=== PATIENT | female | born 1945 | race Caucasian/White ===

== ENCOUNTER 2017-06-04 10:57 | Observation (INO) ==
[2017-06-04] MEDS ORDERED: 0.9 % Sodium Chloride 1,000 ML IVC ONE (11:20)
[2017-06-04] MEDS ORDERED: Ondansetron 4 MG/2 ML VIAL IVP ONE (11:23)
--- NOTE | 2017-06-04 11:26 | Emergency Department Note ---
Disposition Clinical Impression: Weakness, Dehydration Anemia Qualifiers: Anemia type: unspecified type Qualified Code(s): D64.9 - Anemia, unspecified Disposition: Admitted As Inpatient Condition: Fair Forms: ED Satisfaction Letter Weakness HPI - General Chief complaint: ED Weakness Stated complaint: N/V/D weakness x1week Time Seen by Provider: 06/04/17 11:13 Source: patient Limitations: no limitations Nursing Notes Reviewed: Yes Vital Signs Reviewed: Yes - History of Present Illness HPI Narrative: 8-year-old female complaints of generalized weakness. Symptoms started approximately 1 week ago with nausea vomiting and diarrhea. Patient felt that she probably had a virus. Was not seen by primary care doctor. Weakness got progressively worse to the point that today she feel both weak and short of breath. Was in to see her primary care doctor whom he was sent her to the emergency department for further evaluation and treatment. She denies fevers or chills. She continues to have nausea and vomiting. She says she has no chest pain but she does feel short of breath. Not so much that she cannot catch her breath but just feels like she is weakened and has a difficult time catching her breath. No abdominal pain but does have a history of diverticulitis. 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 She currently takes Coumadin for this. She said the symptoms are worse this morning and have not improved through the course of the day. She is not taken any additional medications. Pt Subjective Complaint: generalized weakness/fatigue Onset (ago): day(s) Duration: constant Location: generalized Migration: none Pain Severity: none Pain Scale: 0 Improves with: none Worsens with: none Context: recent illness Associated symptoms: Reports: shortness of breath - Related Data Allergies Allergy/AdvReac Type Severity Reaction Status Date / Time cephalexin [From Keflex] Allergy Hives Verified 06/04/17 10:59 All systems ED: reviewed and negative except as stated. Constitutional: Reports: weakness Cardiovascular: Denies: chest pain, palpitations Respiratory: Reports: dyspnea Gastrointestinal: Reports: nausea, vomiting, diarrhea Genitourinary: Reports: as per HPI Musculoskeletal: Reports: as per HPI Neurological: Reports: weakness Psychiatric: Reports: as per HPI Past Medical History - Past Medical History Attestation: Yes The following information was validated with the patient. Medical history: Reports: DVT, hyperlipidemia, other Psychiatric history: Reports: no psych history - Social History Smoking Status: Never smoker Smokeless Tobacco Status: No Alcohol use: Reports: none Drug use: Reports: none Physical Exam - General Limitations: no limitations General appearance: alert, in no apparent distress - Head Head exam: atraumatic - Eye Eye exam: Present: normal appearance, PERRL - ENT ENT exam: normal exam, normal oropharynx - Neck Neck exam: Present: normal inspection, full ROM - Chest Chest inspection: Present: normal inspection, symmetric chest wall rise - Respiratory Respiratory exam: Present: normal lung sounds bilaterally. Absent: respiratory distress - Cardiovascular Cardiovascular exam: Present: regular rate, normal rhythm - Abdominal Exam Abdominal exam: Present: soft, Non-Tender - Extremities Exam Extremities exam: Present: pedal edema (Patient has bilateral mild edema. She says this is not new.) - Neurological Exam Neurological exam: Present: alert, oriented X3 - Psychiatric Psychiatric exam: Present: normal affect - Skin Skin exam: Present: warm, dry, intact Course Vital Signs Temperature 97.8 F 06/04/17 10:59 Pulse Rate 76 06/04/17 10:59 Respiratory Rate 18 06/04/17 10:59 Blood Pressure 145/74 06/04/17 10:59 O2 Sat by Pulse Oximetry 100 06/04/17 10:59 Temperature 97.8 F 06/04/17 10:59 Pulse Rate 72 06/04/17 13:24 Respiratory Rate 16 06/04/17 13:24 Blood Pressure 155/77 06/04/17 13:24 O2 Sat by Pulse Oximetry 98 06/04/17 13:24 Oxygen Delivery Oxygen Delivery Room Air Weakness - [facility] Narrative Medical decision making narrative: [place] potential causes for this patient's weakness. It could be something relatively simple such as dehydration which is easing of treat, but will also need to check for other more significant abnormalities. The patient's history of DVTs and filter placement we will check for PEs today we will also check for diverticulitis by scanning both of those areas. We will check lab testing EKG and also look for cardiac causes of her potential weakness. Disposition will depend on findings of the workup and also how the patient does with treatment for nausea and dehydration. I spoke with the hospitalist at 1:50 PM. We agreed to start one treatment of packed red blood cells prior to admission. And will arrange for hospitalization for treatment of her anemia. I did not have a source of anemia at time of ER visit. Patient does have no PE per her radiographic evaluation and the abdominal CT scan was also negative. Other lab tests are largely unremarkable. Hospitalization was arranged. - Lab Data Lab results reviewed: Yes I reviewed the patient's lab results. Result diagrams: 06/04/17 11:30 06/04/17 11:30 Lab Results 06/04/17 06/04/17 06/04/17 Range/Units 11:30 11:30 11:30 WBC 6.5 (4.3-11.1) K/mcL RBC 4.08 (3.82-4.97) M/mcL Hgb 7.4 L (11.5-15.4) g/dL Hct 26.6 L (35.3-44.9) % MCV 65.2 L (83.0-100.0) fL MCH 18.1 L (28.0-33.3) pg MCHC 27.8 L (31.6-35.5) g/dL RDW 16.7 H (11.5-14.5) % Plt Count 564 H (140-400) K/mcL MPV 8.9 L (9.4-12.4) fL Immature Gran % 0.3 (0-4) % Seg Neutrophils % 72.3 % Lymphocytes % 19.5 % Monocytes % 5.4 % Eosinophils % 2.2 % Basophils % 0.3 % Neutrophils # 4.7 (1.6-8.9) K/mcL Lymphocytes # 1.3 (0.6-4.6) K/mcL Monocytes # 0.4 (0.0-1.3) K/mcL Eosinophils # 0.1 (0.0-0.6) K/mcL Basophils # 0.0 (0.0-0.2) K/mcL Platelet Estimate Slight increase H (Normal) Immature Plt Fraction 1.9 (1.1-6.1) % Hypochromasia Present A (Not Present) Anisocytosis 1+ A (Not Present) Microcytosis Present A (Not Present) PT 31.2 H (9.4-12.1) Seconds INR 2.8 Sodium 138 (136-145) mEq/L Potassium 3.7 (3.5-4.5) mEq/L Chloride 108 (98-109) mEq/L Carbon Dioxide 21 (19-29) mEq/L BUN 10 (7-20) mg/dL Creatinine 0.79 (0.57-1.11) mg/dL Est GFR ( Amer) > 60 (> 60) Est GFR (Non-Af Amer) > 60 (> 60) BUN/Creatinine Ratio 13 (6-26) Glucose 105 H (70-99) mg/dL POC Glucose (58-89) Calculated Osmolality 285 (280-300) Lactic Acid (0.5-2.2) mmol/L Calcium 9.6 (8.6-10.8) mg/dL Magnesium 2.0 (1.6-2.6) mg/dL Total Bilirubin 0.3 (0.2-1.2) mg/dL AST 15 (5-34) Units/L ALT 11 (0-55) Units/L Alkaline Phosphatase 79 (38-126) Units/L Troponin I (0-0.03) ng/mL B-Natriuretic Peptide (0-100) pg/mL Serum Total Protein 7.4 (6.0-8.3) g/dL Albumin 3.7 (3.5-5.0) g/dL Globulin 3.7 H (2.4-3.5) g/dL Albumin/Globulin Ratio 1.0 L (1.1-2.2) TSH 2.184 (0.350-4.840) mcIU/mL Stool Occult Blood (Negative) Blood Type Antibody Screen 06/04/17 06/04/17 06/04/17 Range/Units 11:30 11:30 11:30 WBC (4.3-11.1) K/mcL RBC (3.82-4.97) M/mcL Hgb (11.5-15.4) g/dL Hct (35.3-44.9) % MCV (83.0-100.0) fL MCH (28.0-33.3) pg MCHC (31.6-35.5) g/dL RDW (11.5-14.5) % Plt Count (140-400) K/mcL MPV (9.4-12.4) fL Immature Gran % (0-4) % Seg Neutrophils % % Lymphocytes % % Monocytes % % Eosinophils % % Basophils % % Neutrophils # (1.6-8.9) K/mcL Lymphocytes # (0.6-4.6) K/mcL Monocytes # (0.0-1.3) K/mcL Eosinophils # (0.0-0.6) K/mcL Basophils # (0.0-0.2) K/mcL Platelet Estimate (Normal) Immature Plt Fraction (1.1-6.1) % Hypochromasia (Not Present) Anisocytosis (Not Present) Microcytosis (Not Present) PT (9.4-12.1) Seconds INR Sodium (136-145) mEq/L Potassium (3.5-4.5) mEq/L Chloride (98-109) mEq/L Carbon Dioxide (19-29) mEq/L BUN (7-20) mg/dL Creatinine (0.57-1.11) mg/dL Est GFR ( Amer) (> 60) Est GFR (Non-Af Amer) (> 60) BUN/Creatinine Ratio (6-26) Glucose (70-99) mg/dL POC Glucose (58-89) Calculated Osmolality (280-300) Lactic Acid 1.7 (0.5-2.2) mmol/L Calcium (8.6-10.8) mg/dL Magnesium (1.6-2.6) mg/dL Total Bilirubin (0.2-1.2) mg/dL AST (5-34) Units/L ALT (0-55) Units/L Alkaline Phosphatase (38-126) Units/L Troponin I 0.00 (0-0.03) ng/mL B-Natriuretic Peptide 185 H (0-100) pg/mL Serum Total Protein (6.0-8.3) g/dL Albumin (3.5-5.0) g/dL Globulin (2.4-3.5) g/dL Albumin/Globulin Ratio (1.1-2.2) TSH (0.350-4.840) mcIU/mL Stool Occult Blood (Negative) Blood Type Antibody Screen 06/04/17 06/04/17 06/04/17 Range/Units 11:36 12:29 12:38 WBC (4.3-11.1) K/mcL RBC (3.82-4.97) M/mcL Hgb (11.5-15.4) g/dL Hct (35.3-44.9) % MCV (83.0-100.0) fL MCH (28.0-33.3) pg MCHC (31.6-35.5) g/dL RDW (11.5-14.5) % Plt Count (140-400) K/mcL MPV (9.4-12.4) fL Immature Gran % (0-4) % Seg Neutrophils % % Lymphocytes % % Monocytes % % Eosinophils % % Basophils % % Neutrophils # (1.6-8.9) K/mcL Lymphocytes # (0.6-4.6) K/mcL Monocytes # (0.0-1.3) K/mcL Eosinophils # (0.0-0.6) K/mcL Basophils # (0.0-0.2) K/mcL Platelet Estimate (Normal) Immature Plt Fraction (1.1-6.1) % Hypochromasia (Not Present) Anisocytosis (Not Present) Microcytosis (Not Present) PT (9.4-12.1) Seconds INR Sodium (136-145) mEq/L Potassium (3.5-4.5) mEq/L Chloride (98-109) mEq/L Carbon Dioxide (19-29) mEq/L BUN (7-20) mg/dL Creatinine (0.57-1.11) mg/dL Est GFR ( Amer) (> 60) Est GFR (Non-Af Amer) (> 60) BUN/Creatinine Ratio (6-26) Glucose (70-99) mg/dL POC Glucose 105 H (58-89) Calculated Osmolality (280-300) Lactic Acid (0.5-2.2) mmol/L Calcium (8.6-10.8) mg/dL Magnesium (1.6-2.6) mg/dL Total Bilirubin (0.2-1.2) mg/dL AST (5-34) Units/L ALT (0-55) Units/L Alkaline Phosphatase (38-126) Units/L Troponin I (0-0.03) ng/mL B-Natriuretic Peptide (0-100) pg/mL Serum Total Protein (6.0-8.3) g/dL Albumin (3.5-5.0) g/dL Globulin (2.4-3.5) g/dL Albumin/Globulin Ratio (1.1-2.2) TSH (0.350-4.840) mcIU/mL Stool Occult Blood Negative (Negative) Blood Type O POSITIVE Antibody Screen NEGATIVE - Radiology Data Radiology results reviewed: Yes I reviewed the patient's radiology results. - EKG Data EKG attestation: Yes I reviewed and interpreted this EKG. EKG shows normal: sinus rhythm Rate: normal When compared to previous EKG there are: no significant changes Interpretation: no acute changes Critical Care Time Critical Care Time: Yes Total Critical Care Time: 35 Attestation: Critical care time 35 minutes managing patient's anemia.
[2017-06-04 11:39] LABS: Basophils % 0.3 %; Eosinophils # 0.1 K/mcL (0.0-0.6); Eosinophils % 2.2 %; Hematocrit 26.6 % (35.3-44.9); Immature Granulocytes % 0.3 % (0-4); Immature Platelets 1.9 % (1.1-6.1); Lymphocytes # 1.3 K/mcL (0.6-4.6); Lymphocytes % 19.5 %; Mean Corpuscular HGB Conc 27.8 g/dL (31.6-35.5); Mean Corpuscular Hemoglobin 18.1 pg (28.0-33.3); Mean Corpuscular Volume 65.2 fL (83.0-100.0); Mean Platelet Volume 8.9 fL (9.4-12.4); Monocytes # 0.4 K/mcL (0.0-1.3); Monocytes % 5.4 %; Neutrophils # 4.7 K/mcL (1.6-8.9); Platelet Count 564 K/mcL (140-400); Red Blood Count 4.08 M/mcL (3.82-4.97); Red Cell Distribution Width 16.7 % (11.5-14.5); Segmented Neutrophils % 72.3 %
[2017-06-04 11:44] LABS: INR 2.8; Prothrombin Time 31.2 Seconds (9.4-12.1)
[2017-06-04 11:52] LABS: Alanine Aminotransferase 11 Units/L (0-55); Albumin 3.7 g/dL (3.5-5.0); Alkaline Phosphatase 79 Units/L (38-126); Aspartate Amino Transferase 15 Units/L (5-34); BUN/Creatinine Ratio 13 (6-26); Bilirubin,Total 0.3 mg/dL (0.2-1.2); Blood Urea Nitrogen 10 mg/dL (7-20); Calcium 9.6 mg/dL (8.6-10.8); Carbon Dioxide 21 mEq/L (19-29); Chloride 108 mEq/L (98-109); Globulin 3.7 g/dL (2.4-3.5); Glucose 105 mg/dL (70-99); Osmolality,Calculated 285 (280-300); Potassium 3.7 mEq/L (3.5-4.5); Sodium 138 mEq/L (136-145); Total Protein 7.4 g/dL (6.0-8.3); eGFR For African Americans > 60 (> 60); eGFR For Non-African Americans > 60 (> 60)
[2017-06-04 11:55] LABS: Hemoglobin 7.4 g/dL (11.5-15.4)
[2017-06-04 11:57] LABS: Anisocytosis 1+ (Not Present); Microcytosis Present (Not Present)
[2017-06-04 11:58] LABS: Hypochromasia Present (Not Present)
[2017-06-04 12:13] LABS: Thyroid Stimulating Hormone 2.184 mcIU/mL (0.350-4.840)
[2017-06-04] MEDS ORDERED: 0.9 % Sodium Chloride 250 ML ONE (14:36)
[2017-06-04] MEDS ORDERED: Acetaminophen 325 MG TABLET PO PRN (14:38)
[2017-06-04] MEDS ORDERED: Naloxone 0.4 MG/ML INJ IVP PRN (14:38)
--- NOTE | 2017-06-04 15:00 | Internal Med History&Physical ---
<Tiana Simons M - Last Filed: 06/04/17 15:16> Date of Encounter: 06/04/17 Time of Encounter: 14:53 Assessment and Plan (1) Anemia Current visit: Yes Status: Acute Patient presented with fatigue and dyspnea on exertion. Patient is on coumadin for history of DVTs and INR is therapeutic at 2.8. Hgb found to be 7.4. FOB negative for blood. Patient denies any bloody or black stools. Check iron studies, retic count, B12, Folate Transfuse 1unit of blood. Hold today's coumadin to await anemia work up. If Patient does not have iron- deficiency anemia, may resume coumadin tomorrow. Consider referrals to hematology and/or gastroenterology as an outpatient. Qualifiers: Anemia type: unspecified type Qualified Code(s): D64.9 - Anemia, unspecified (2) Anticoagulated on Coumadin Current visit: Yes Status: Acute Patient on coumadin for history of DVTs. INR is therapeutic at 2.8. Hold coumadin x 1 day to await results of anemia work up in case of possible bleeding. Check PT/INR/PTT daily. (3) Dehydration Current visit: Yes Status: Acute Patient had N/V/diarrhea 1 week ago and poor appetite and fatigue since then. Patient given 1L fluid bolus in ED, continue fluids with 0.9NS at 100mL/hr. (4) DVT prophylaxis Current visit: Yes Status: Acute sequential compression devices. Patient on coumadin and INR is therapeutic, holding for possible bleed given anemia. Additional pharmacologic prophylaxis is not warranted. Internal Medicine - H&P: HPI Chief complaint: fatigue, shortness of breath Admitted From: Emergency Dept Plans for Post Hospital Care: Home History of present illness: Ms. Burgos is a 71 year old female with history of DVTs on Coumadin and s/p IVC filter placement, diverticulitis, Hyperlipidemia, presented to the ED today with reports of fatigue and dyspnea on exertion. Patient reports that 1 week ago, she had nausea, vomiting and diarrhea for 2 days. Her symptoms resolved, but poor appetite and fatigue persisted. Today she had shortness of breath with activity in addition to her fatigue. She had an appointment with her PCP, who sent her to the ED. She reports occasional lightheadedness. She denies any chest pain, palpitations, recent fever, chills or sweats. Evaluation in the ED revealed anemia with Hgb of 7.4. CTA showed no evidence of PE and large gastric hiatal hernia. CT abdomend and pelivs showed no acute finding. INR was therapeutic at 2.8. FOB was negetive for blood. She was given 1L bolus and zofran and 1 unit of blood was ordered. On exam, patient is pale, alert and oriented, in no acute distress. Heart has regular rate and rhythm, lungs are clear bilaterally. Abdomen is soft, non-tender, with positive bowel sounds. No peripheral edema. Peripheral pulses intact. Past Med Surg Social Fam HX - Past Medical History Medical history: DVT, GERD, hyperlipidemia, other Psychiatric history: no psych history - Past Surgical History Surgical History: hysterectomy, orthopedic, other, IVC filter - Social History Smoking Status: Never smoker Smokeless Tobacco Status: No Alcohol use: none Drug use: none - Family History Father Living Status: Cause of : lung cancer Hx Family Respiratory Disorders: Yes Mother Living Status: Cause of : CVA Internal Medicine - H&P: Meds Gemfibrozil [Lopid] 600 mg PO BID 06/04/17 [History] Pantoprazole Sodium [Protonix] 40 mg PO DAILY 06/04/17 [History] Warfarin [Coumadin] 5 mg PO SUTUSA 06/04/17 [History] Warfarin [Coumadin] 7.5 mg PO MOWETHFR 06/04/17 [History] 3 Allergy/AdvReac Type Severity Reaction Status Date / Time cephalexin [From Keflex] Allergy Hives Verified 06/04/17 10:59 All Systems PM: A 10-system review of systems was performed and is negative for pertinent findings except as documented above in the HPI. - Constitutional Constitutional: anorexia, fatigue, weakness, no chills, no fever(s), no night sweats - EENT Eyes: no change in vision, no discharge, no pain, no photophobia Ears: no ear discharge, no ear pain, no tinnitus Nose, mouth and throat: no dysphagia, no nasal discharge, no neck pain, no sore throat - Cardiovascular Cardiovascular ROS IM: dyspnea on exertion, lightheadedness, no chest pain, no diaphoresis, no dyspnea, no palpitations, no syncope - Respiratory Respiratory: dyspnea on exertion, no cough, no dyspnea, no wheezing, no excessive phlegm production - Gastrointestinal Gastrointestinal: diarrhea, nausea, vomiting, no abdominal pain, no hematemesis , no hematochezia, no melena - Genitourinary Genitourinary: no change in urinary stream, no dysuria, no flank pain, no hematuria - Musculoskeletal Musculoskeletal ROS IM: no numbness, no tingling - Integumentary Integumentary IM: no rash, no unusual bruising - Neurological Neurological ROS: no confusion, no convulsions, no focal weakness, no numbness, no tingling, no tremor(s) - Hematologic/Lymphatic Hematologic/Lymphatic: no easy bruising - Constitutional Vitals: Temp Pulse Resp BP Pulse Ox 97.8 F 72 16 135/77 98 06/04/17 10:59 06/04/17 13:24 06/04/17 14:10 06/04/17 14:10 06/04/17 13:24 General appearance: Present: A&O X 3, pleasant, no acute distress - Head Head exam: Present: atraumatic, normocephalic - Eye Eye exam: Present: PERRL, conjuntiva pink, sclera anicteric Pupils: Present: PERRL - Neck Neck exam general surgery: Present: supple, trachea midline. Absent: lymphadenopathy - Respiratory Respiratory exam: Present: CTAB. Absent: accessory muscle use, rales, rhonchi, wheezes - Cardiovascular Cardiovascular exam: Present: RRR, +S1, +S2. Absent: diastolic murmur, gallop, rubs, systolic murmur - GI/Abdominal GI/Abdominal exam: Present: normal bowel sounds, soft, no peritoneal signs. Absent: distended, tenderness - Extremities Exam Extremities exam: Present: warm, radial pulses palpable and symmetrical. Absent : calf tenderness, cyanotic, pedal edema - Neurological Exam Neurological exam: Present: CN II-XII intact, oriented X3, no focal deficits. Absent: pronater drift, facial droop, speech deficit - Skin Skin exam: Present: dry, intact, pallor Internal Med - H&P Results - Labs CBC & Chem 7: 06/04/17 11:30 06/04/17 11:30 Labs: All Lab Results (24 Hours) 06/04/17 06/04/17 06/04/17 Range/Units 11:30 11:30 11:30 WBC 6.5 (4.3-11.1) K/mcL RBC 4.08 (3.82-4.97) M/mcL Hgb 7.4 L (11.5-15.4) g/dL Hct 26.6 L (35.3-44.9) % MCV 65.2 L (83.0-100.0) fL MCH 18.1 L (28.0-33.3) pg MCHC 27.8 L (31.6-35.5) g/dL RDW 16.7 H (11.5-14.5) % Plt Count 564 H (140-400) K/mcL MPV 8.9 L (9.4-12.4) fL Immature Gran % 0.3 (0-4) % Seg Neutrophils % 72.3 % Lymphocytes % 19.5 % Monocytes % 5.4 % Eosinophils % 2.2 % Basophils % 0.3 % Neutrophils # 4.7 (1.6-8.9) K/mcL Lymphocytes # 1.3 (0.6-4.6) K/mcL Monocytes # 0.4 (0.0-1.3) K/mcL Eosinophils # 0.1 (0.0-0.6) K/mcL Basophils # 0.0 (0.0-0.2) K/mcL Platelet Estimate Slight increase H (Normal) Immature Plt Fraction 1.9 (1.1-6.1) % Hypochromasia Present A (Not Present) Anisocytosis 1+ A (Not Present) Microcytosis Present A (Not Present) PT 31.2 H (9.4-12.1) Seconds INR 2.8 Sodium 138 (136-145) mEq/L Potassium 3.7 (3.5-4.5) mEq/L Chloride 108 (98-109) mEq/L Carbon Dioxide 21 (19-29) mEq/L BUN 10 (7-20) mg/dL Creatinine 0.79 (0.57-1.11) mg/dL Est GFR ( Amer) > 60 (> 60) Est GFR (Non-Af Amer) > 60 (> 60) BUN/Creatinine Ratio 13 (6-26) Glucose 105 H (70-99) mg/dL POC Glucose (58-89) Calculated Osmolality 285 (280-300) Lactic Acid (0.5-2.2) mmol/L Calcium 9.6 (8.6-10.8) mg/dL Magnesium 2.0 (1.6-2.6) mg/dL Total Bilirubin 0.3 (0.2-1.2) mg/dL AST 15 (5-34) Units/L ALT 11 (0-55) Units/L Alkaline Phosphatase 79 (38-126) Units/L Troponin I (0-0.03) ng/mL B-Natriuretic Peptide (0-100) pg/mL Serum Total Protein 7.4 (6.0-8.3) g/dL Albumin 3.7 (3.5-5.0) g/dL Globulin 3.7 H (2.4-3.5) g/dL Albumin/Globulin Ratio 1.0 L (1.1-2.2) TSH 2.184 (0.350-4.840) mcIU/mL Stool Occult Blood (Negative) Blood Type Antibody Screen Crossmatch 06/04/17 06/04/17 06/04/17 Range/Units 11:30 11:30 11:30 WBC (4.3-11.1) K/mcL RBC (3.82-4.97) M/mcL Hgb (11.5-15.4) g/dL Hct (35.3-44.9) % MCV (83.0-100.0) fL MCH (28.0-33.3) pg MCHC (31.6-35.5) g/dL RDW (11.5-14.5) % Plt Count (140-400) K/mcL MPV (9.4-12.4) fL Immature Gran % (0-4) % Seg Neutrophils % % Lymphocytes % % Monocytes % % Eosinophils % % Basophils % % Neutrophils # (1.6-8.9) K/mcL Lymphocytes # (0.6-4.6) K/mcL Monocytes # (0.0-1.3) K/mcL Eosinophils # (0.0-0.6) K/mcL Basophils # (0.0-0.2) K/mcL Platelet Estimate (Normal) Immature Plt Fraction (1.1-6.1) % Hypochromasia (Not Present) Anisocytosis (Not Present) Microcytosis (Not Present) PT (9.4-12.1) Seconds INR Sodium (136-145) mEq/L Potassium (3.5-4.5) mEq/L Chloride (98-109) mEq/L Carbon Dioxide (19-29) mEq/L BUN (7-20) mg/dL Creatinine (0.57-1.11) mg/dL Est GFR ( Amer) (> 60) Est GFR (Non-Af Amer) (> 60) BUN/Creatinine Ratio (6-26) Glucose (70-99) mg/dL POC Glucose (58-89) Calculated Osmolality (280-300) Lactic Acid 1.7 (0.5-2.2) mmol/L Calcium (8.6-10.8) mg/dL Magnesium (1.6-2.6) mg/dL Total Bilirubin (0.2-1.2) mg/dL AST (5-34) Units/L ALT (0-55) Units/L Alkaline Phosphatase (38-126) Units/L Troponin I 0.00 (0-0.03) ng/mL B-Natriuretic Peptide 185 H (0-100) pg/mL Serum Total Protein (6.0-8.3) g/dL Albumin (3.5-5.0) g/dL Globulin (2.4-3.5) g/dL Albumin/Globulin Ratio (1.1-2.2) TSH (0.350-4.840) mcIU/mL Stool Occult Blood (Negative) Blood Type Antibody Screen Crossmatch 06/04/17 06/04/17 06/04/17 Range/Units 11:36 12:29 12:38 WBC (4.3-11.1) K/mcL RBC (3.82-4.97) M/mcL Hgb (11.5-15.4) g/dL Hct (35.3-44.9) % MCV (83.0-100.0) fL MCH (28.0-33.3) pg MCHC (31.6-35.5) g/dL RDW (11.5-14.5) % Plt Count (140-400) K/mcL MPV (9.4-12.4) fL Immature Gran % (0-4) % Seg Neutrophils % % Lymphocytes % % Monocytes % % Eosinophils % % Basophils % % Neutrophils # (1.6-8.9) K/mcL Lymphocytes # (0.6-4.6) K/mcL Monocytes # (0.0-1.3) K/mcL Eosinophils # (0.0-0.6) K/mcL Basophils # (0.0-0.2) K/mcL Platelet Estimate (Normal) Immature Plt Fraction (1.1-6.1) % Hypochromasia (Not Present) Anisocytosis (Not Present) Microcytosis (Not Present) PT (9.4-12.1) Seconds INR Sodium (136-145) mEq/L Potassium (3.5-4.5) mEq/L Chloride (98-109) mEq/L Carbon Dioxide (19-29) mEq/L BUN (7-20) mg/dL Creatinine (0.57-1.11) mg/dL Est GFR ( Amer) (> 60) Est GFR (Non-Af Amer) (> 60) BUN/Creatinine Ratio (6-26) Glucose (70-99) mg/dL POC Glucose 105 H (58-89) Calculated Osmolality (280-300) Lactic Acid (0.5-2.2) mmol/L Calcium (8.6-10.8) mg/dL Magnesium (1.6-2.6) mg/dL Total Bilirubin (0.2-1.2) mg/dL AST (5-34) Units/L ALT (0-55) Units/L Alkaline Phosphatase (38-126) Units/L Troponin I (0-0.03) ng/mL B-Natriuretic Peptide (0-100) pg/mL Serum Total Protein (6.0-8.3) g/dL Albumin (3.5-5.0) g/dL Globulin (2.4-3.5) g/dL Albumin/Globulin Ratio (1.1-2.2) TSH (0.350-4.840) mcIU/mL Stool Occult Blood Negative (Negative) Blood Type O POSITIVE Antibody Screen NEGATIVE Crossmatch See Detail - Diagnostic Studies Chest x-ray Additional comments: Chest X-Ray 06/04/17 11:20 IMPRESSION: No radiographic evidence of acute cardiopulmonary disease. Moderate to large hiatal hernia with air-fluid levels. Mildly enlarged cardiomediastinal silhouette. D/ / Roger Randolph / Roger Randolph Interpreting Provider: Roger Randolph CT scan - chest Additional comments: Chest CTA 06/04/17 11:22 IMPRESSION: No evidence of pulmonary embolism or acute pulmonary abnormality. Large gastric hiatal hernia with sliding and paraesophageal components. D/ / Tyler Meeks MD / Tyler Meeks MD Interpreting Provider: Tyler Meeks MD CT scan - abdomen Additional comments: Abdomen/Pelvis CT 06/04/17 11:22 IMPRESSION: 1. No acute finding in the abdomen or pelvis. 2. Large paraesophageal hiatal hernia. 3. Cholelithiasis. D/ / Antonino Gutierrez MD / Antonino Gutierrez MD Interpreting Provider: Antonino Gutierrez MD <Ada Barakat - Last Filed: 06/04/17 15:55> Date of Encounter: 06/04/17 Internal Medicine - H&P: HPI History of present illness: Ms. Burgos is a 71 year old female All Systems PM: A 10-system review of systems was performed and is negative for pertinent findings except as documented above in the HPI. - Constitutional Vitals: Temp Pulse Resp BP Pulse Ox 98.2 F 79 16 147/69 96 06/04/17 15:18 06/04/17 15:18 06/04/17 15:18 06/04/17 15:18 06/04/17 15:18 Internal Med - H&P Results - Labs CBC & Chem 7: 06/04/17 11:30 06/04/17 11:30 - Attending Attestation I have personally performed a face to face evaluation on this patient. I have reviewed and agree with the care plan. 71-year-old female who presents with severe fatigue, presyncopal complaint. Unable to function. Recently had one week history of viral gastroenteritis. Was admitted for concerns of sympatomatic anemia On review she reports a history of red blood on wiping occasionally. Assessment and plan Anemia, possible systematic - check nutritional studies. Preliminary blood work suggests iron deficiency. Ferritin to confirm. Check response to 1 unit of PRBCs PTOT evaluation in morning
[2017-06-04 15:14] LABS: Immature Reticulocyte % 22.9 % (11.0-38.0); Retculocyte # 0.05 M/mcL (0.05-0.10); Reticulocyte % 1.1 % (1.6-2.8)
[2017-06-04 15:20] LABS: % Iron Saturation 2 % (15-50); Iron 10 mcg/dL (50-170); Transferrin 346 mg/dL (180-382)
[2017-06-04 15:56] LABS: Folate 15.7 ng/mL (7.0-31.4)
[2017-06-04] MEDS: 0.9 % Sodium Chloride 1,000 ML IVC SCH (17:49)
[2017-06-04 22:33] LABS: Bilirubin,Urine Negative (Negative); Blood,Urine Negative (Negative); Clarity,Urine Clear (Clear); Color,Urine Yellow (Yellow); Glucose,Urine (UA) Normal (Normal); Ketones,Urine Negative (Negative); Leukocyte Esterase,Urine Negative (Negative); Nitrite,Urine Negative (Negative); PH,Urine 6.5 pH Units (5.0-8.0); Protein,Urine Negative (Neg-Trace); Specific Gravity,Urine > 1.030 (1.010-1.025); Urobilinogen,Urine Normal (Normal)
[2017-06-05] MEDS: 0.9 % Sodium Chloride 1,000 ML IVC SCH ×3 (04:54→23:42)
[2017-06-05 05:31] LABS: Basophils % 0.5 %; Mean Corpuscular HGB Conc 28.3 g/dL (31.6-35.5); Mean Platelet Volume 9.2 fL (9.4-12.4)
[2017-06-05 05:33] LABS: Eosinophils # 0.3 K/mcL (0.0-0.6); Eosinophils % 5.9 %; Hematocrit 25.1 % (35.3-44.9); Hemoglobin 7.1 g/dL (11.5-15.4); Immature Granulocytes % 0.5 % (0-4); Lymphocytes # 1.5 K/mcL (0.6-4.6); Lymphocytes % 34.8 %; Mean Corpuscular Hemoglobin 19.7 pg (28.0-33.3); Mean Corpuscular Volume 69.5 fL (83.0-100.0); Monocytes # 0.4 K/mcL (0.0-1.3); Monocytes % 8.5 %; Neutrophils # 2.1 K/mcL (1.6-8.9); Platelet Count 409 K/mcL (140-400); Red Blood Count 3.61 M/mcL (3.82-4.97); Red Cell Distribution Width 18.1 % (11.5-14.5); Segmented Neutrophils % 49.8 %
[2017-06-05 05:36] LABS: INR 2.3; Prothrombin Time 24.8 Seconds (9.4-12.1)
[2017-06-05 05:39] LABS: Activated Partial Thrombo Time 33.7 Seconds (26.0-36.0)
[2017-06-05 05:42] LABS: BUN/Creatinine Ratio 10 (6-26); Blood Urea Nitrogen 7 mg/dL (7-20); Calcium 8.7 mg/dL (8.6-10.8); Carbon Dioxide 21 mEq/L (19-29); Chloride 111 mEq/L (98-109); Glucose 84 mg/dL (70-99); Osmolality,Calculated 285 (280-300); Potassium 3.9 mEq/L (3.5-4.5); Sodium 139 mEq/L (136-145); eGFR For African Americans > 60 (> 60); eGFR For Non-African Americans > 60 (> 60)
[2017-06-05 06:39] LABS: Thyroid Stimulating Hormone 3.005 mcIU/mL (0.350-4.840)
[2017-06-05 06:43] LABS: Hypochromasia Present (Not Present); Microcytosis Present (Not Present)
[2017-06-05] MEDS ORDERED: Iron Sucrose Complex 200 MG in 0.9 % Sodium Chloride 100 ML IVPB ONE (09:39)
[2017-06-05] MEDS ORDERED: 0.9 % Sodium Chloride 250 ML ONE (10:32)
[2017-06-05 16:36] LABS: Hematocrit 29.5 % (35.3-44.9); Hemoglobin 8.4 g/dL (11.5-15.4)
--- NOTE | 2017-06-05 16:38 | Electrocardiograph Report ---
[place] [id number] Test Date: 2017-06-04 Pat Name: Debbi Burgos Department: 103 Room: 3B Gender: F [employer]: : [id number] Requested By: Isaac Fishman Order Number: [id number] Reading MD: Angelica Blue Measurements Intervals [place] Rate: 75 P: 41 NH: 151 QRS: -2 QRSD: 96 T: -2 QT: 448 QTc: 477 Interpretive Statements SINUS RHYTHM WITH OCCASIONAL ECTOPIC PREMATURE COMPLEXES POSSIBLE RIGHT VENTRICULAR CONDUCTION DELAY [RSR (QR) IN V1/V2] PROLONGED QT INTERVAL V4 not suitable for interpretation Electronically Signed On 06-05-2017 16:37:01 EDT by Angelica Blue
--- NOTE | 2017-06-05 17:42 | Internal Med Progress Note ---
Date of Encounter: 06/05/17 Time of Encounter: 10:45 - Assessment and plan (1) Weakness Current Visit: Yes Status: Acute Assessment and plan: Pt reports increasing weakness since January. STates that it would wax and wane and somewhat resolve with rest. She reports that the last 2-3 days have been "awful" with weakness and MARTINEZ. Pt with hgb of 7.1 today, transfused. Hgb has increased to 8.4 today and will continue to monitor and treat JENNIFER. (2) Dehydration Current Visit: Yes Status: Resolved (3) Anemia Current Visit: Yes Status: Acute Assessment and plan: Pt transfused with another unit PRBCs today for hgb 7.1. 8.4 after transfusion. Will continue to monitor until the a.m. since hgb dropped after last transfusion. Iron 10, % saturation 2. Pt has been started on Ferrous Sulfate and will continue at home on discharge. Qualifiers: Anemia type: iron deficiency Iron deficiency anemia type: unspecified iron deficiency Qualified Code(s): D50.9 - Iron deficiency anemia, unspecified (4) Anticoagulated on Coumadin Current Visit: Yes Status: Acute Assessment and plan: Has been stopped due to anemia. Pt has a history of DVTs. INR therapeutic on arrival aat 2.8. (5) DVT prophylaxis Current Visit: Yes Status: Acute Assessment and plan: SCDs ordered. Anticoagulation has been held, due to anemia. Will continue to monitor coags and H&H. - Time Spent With Patient less than 15 minutes - Subjective Interval history: Patient was seen and assessed at 1045 this morning. She is alert, overweight, pleasant sitting up in the bed. She reports approximately 3-4 month history of waxing and waning, increasing shortness of breath and weakness. She reports feeling somewhat better today, however not completely resolved. Patient is aware that due to her hemoglobin falling after last transfusion, I would like to keep her overnight again to reevaluate in the morning to make sure the hemoglobin stays stable overnight that she is safe to discharge. She has no active bleeding per her history. - Constitutional Vitals: Temp Pulse Resp BP Pulse Ox 98.8 F 76 16 161/68 94 06/05/17 15:46 06/05/17 15:46 06/05/17 15:46 06/05/17 15:46 06/05/17 15:46 General appearance: Present: A&O X 3, pleasant, no acute distress, answers questions appropriately - Head Head exam: Present: atraumatic, normal inspection, normocephalic - Eye Eye exam: Present: normal appearance, conjuntiva pink, sclera anicteric - Neck Neck exam general surgery: Present: supple, trachea midline. Absent: lymphadenopathy, tenderness - Respiratory Respiratory exam: Present: CTAB. Absent: accessory muscle use, chest wall tenderness, rales, respiratory distress, rhonchi, wheezes - Cardiovascular Cardiovascular exam: Present: RRR, +S1, +S2. Absent: diastolic murmur, gallop, rubs, systolic murmur - GI/Abdominal GI/Abdominal exam: Present: normal bowel sounds, soft, no peritoneal signs. Absent: distended, hepatomegaly, tenderness - Extremities Exam Extremities exam: Present: normal capillary refill, warm, radial pulses palpable and symmetrical. Absent: calf tenderness, cyanotic, pedal edema, tenderness - Neurological Exam Neurological exam: Present: alert, oriented X3, no focal deficits. Absent: facial droop, speech deficit - Skin Skin exam: Present: dry, intact, pallor, warm. Absent: rash Internal Medicine: Result - Labs CBC & Chem 7: 06/05/17 16:29 06/05/17 04:42 Labs: Short CBC 06/05/17 06/05/17 Range/Units 04:42 16:29 WBC 4.3 (4.3-11.1) K/mcL Hgb 7.1 L 8.4 L (11.5-15.4) g/dL Hct 25.1 L 29.5 L (35.3-44.9) % Plt Count 409 H (140-400) K/mcL Neutrophils # 2.1 (1.6-8.9) K/mcL BMP 06/05/17 04:42 Sodium 139 Potassium 3.9 Chloride 111 H Carbon Dioxide 21 BUN 7 Creatinine 0.73 Glucose 84 Calcium 8.7 Urine 06/04/17 Range/Units 22:17 Urine Color Yellow (Yellow) Urine Clarity Clear (Clear) Urine pH 6.5 (5.0-8.0) pH Units Ur Specific [place] > 1.030 H (1.010-1.025) Urine Protein Negative (Neg-Trace) mg/dL Urine Glucose (UA) Normal (Normal) mg/dL - ABG Interpretation ABG results: PT/INR, D-dimer PT 24.8 Seconds (9.4-12.1) H 06/05/17 04:42 - VTE Documentation of Mechanical Device: Intermittent pneumatic compression device Consult Discharge Plan - Plan Referrals: China Mai, TEACHER ADVISOR [Primary Care Provider] -
[2017-06-06 06:05] LABS: Basophils % 0.6 %; Eosinophils # 0.3 K/mcL (0.0-0.6); Eosinophils % 5.9 %; Hematocrit 28.4 % (35.3-44.9); Hemoglobin 8.4 g/dL (11.5-15.4); Immature Granulocytes % 0.4 % (0-4); Lymphocytes # 1.7 K/mcL (0.6-4.6); Lymphocytes % 34.2 %; Mean Corpuscular HGB Conc 29.6 g/dL (31.6-35.5); Mean Corpuscular Hemoglobin 20.5 pg (28.0-33.3); Mean Corpuscular Volume 69.3 fL (83.0-100.0); Mean Platelet Volume 9.3 fL (9.4-12.4); Monocytes # 0.4 K/mcL (0.0-1.3); Monocytes % 8.7 %; Neutrophils # 2.5 K/mcL (1.6-8.9); Platelet Count 407 K/mcL (140-400); Red Cell Distribution Width 19.6 % (11.5-14.5); Segmented Neutrophils % 50.2 %
[2017-06-06 06:52] LABS: Microcytosis Present (Not Present)
[2017-06-06 06:53] LABS: Hypochromasia Present (Not Present)
[2017-06-06 11:02] VITALS: BP 143/77
--- NOTE | 2017-06-06 14:16 | Discharge Summary ---
Date of Encounter: 06/06/17 Time of Encounter: 10:10 - Discharge Diagnosis (1) Weakness Priority: Secondary Status: Acute Comments: Onset in January or February, most likely when she became symptomatic with anemia. Pt states that she is feeling some better. Continue Iron supplements. (2) Dehydration Priority: Secondary Status: Resolved (3) Anemia Priority: Primary Status: Acute Comments: JENNIFER. Pt received 2 units of blood and will be sent home with Ferrous Sulfate, Vitamin C, and Colace. Hgb 8.4 after 2 units PRBCs. Pt has f/u appointment with PCP next week for hospital follow up appointment. Qualifiers: Anemia type: iron deficiency Iron deficiency anemia type: unspecified iron deficiency Qualified Code(s): D50.9 - Iron deficiency anemia, unspecified (4) Anticoagulated on Coumadin Priority: Secondary Status: Chronic (5) DVT prophylaxis Priority: Secondary Status: Acute - Discharge Medications Prescriptions: Ascorbic Acid [Vitamin C] 500 mg PO BID #60 tablet.er Docusate [Colace] 200 mg PO DAILY #30 capsule Ferrous Sulfate 325 mg PO BIDWM #60 tablet Home Medications: Gemfibrozil [Lopid] 600 mg PO BID 06/04/17 [History] Pantoprazole Sodium [Protonix] 40 mg PO DAILY 06/04/17 [History] Warfarin [Coumadin] 5 mg PO SUTUSA 06/04/17 [History] Warfarin [Coumadin] 7.5 mg PO MOWETHFR 06/04/17 [History] Ascorbic Acid [Vitamin C] 500 mg PO BID #60 tablet.er 06/06/17 [Rx] Docusate [Colace] 200 mg PO DAILY #30 capsule 06/06/17 [Rx] Ferrous Sulfate 325 mg PO BIDWM #60 tablet 06/06/17 [Rx] Allergies/Adverse Reactions: 3 Allergy/AdvReac Type Severity Reaction Status Date / Time cephalexin [From Keflex] Allergy Hives Verified 06/04/17 10:59 Date of admission: 06/04/17 13:56 Primary care physician: China Mai CNP Discharging clinician: Diana Mccollum Anticipated date of discharge: 06/06/17 - Patient Status Disposition: Home, Self-Care Condition: Good Functional capacity at discharge: independent ambulation Overall status at discharge: patient is progressing back to baseline - Discharge Instructions Follow Up With: China Mai CNP [Primary Care Provider] - 06/13/17 1:00 pm Additional Instructions: Follow up with Junie Mai CNP, next week as scheduled. Return to the ER as needed for any other problems or concerns, or if your symptoms return or worsen. If you notice bright red bleeding or maroon colored stools, follow up with your PCP or in the ER. Take your medications as directed and resume your other home medications. Resume your activities as tolerated. - Diet and Activity Activity: increase activity as tolerated Diet: advance to your usual diet Hospital course: Ms. Burgos is a 71 year old female with past medical history of GERD, hyperlipidemia, and anticoagulated on Coumadin for DVTs, she also has an IVC filter placed.. She presented to the emergency department with report of fatigue, dyspnea on exertion, weakness. Onset in January or February, has been increasing since, worse over the last week, worse over the last 2 days. Patient was evaluated in the day of admission by her primary care provider sent her to the emergency department. Patient denies chest pain, palpitations, fever , chills, sweats, headache, does report some occasional lightheadedness, she denies dizziness, abdominal pain, rectal bleeding, increased GERD symptoms, nausea, vomiting or diarrhea. In the emergency department initial H&H showed a hemoglobin of 7.4. CT and no chest showed no acute evidence of PE and a large hiatal hernia. CT abdomen and pelvis showed no acute findings. Her INRs been therapeutic throughout the stay. Guaiac was negative for blood. Patient was given 1 unit of packed red cells E myoglobin 7.1. She was given a second unit of packed red cells hemoglobin 8.4 yesterday to watch patient overnight and hemoglobin remained 8.4 today. Patient appears to be more pink and less fatigued on exam. Patient's iron level was 10, percent saturation was 2, MCV was low at 69.3. Folate and B12 were within normal limits. TSH is within normal limits. Patient is been started on iron supplements, vitamin C, and Colace. We have made her a follow-up appointment with her primary care provider for next week, patient states she will be able to attend. Encourage patient to return to the emergency department she has any other problems or concerns, if her symptoms return, or if she has any maroon stools or bright red bleeding per rectum. Vital signs are stable and within normal limits. Patient states that she feels significantly better and is ready to go home. Patient is appropriate and stable for discharge. - Time Spent with Patient Total time spent providing and/or coordinating discharge services: Less than 30 minutes - Constitutional Vitals: Temp Pulse Resp BP Pulse Ox 97.6 F 74 15 143/77 94 06/06/17 11:01 06/06/17 11:01 06/06/17 11:01 06/06/17 11:01 06/06/17 11:01 General appearance: Present: cooperative, A&O X 3, pleasant, no acute distress, answers questions appropriately - Head Head exam: Present: atraumatic, normal inspection, normocephalic - Eye Eye exam: Present: normal appearance, conjuntiva pink, sclera anicteric - Neck Neck exam general surgery: Present: normal inspection, supple, trachea midline. Absent: lymphadenopathy, tenderness - Respiratory Respiratory exam: Present: CTAB. Absent: accessory muscle use, chest wall tenderness, rales, rhonchi, wheezes - Cardiovascular Cardiovascular exam: Present: RRR, +S1, +S2. Absent: diastolic murmur, gallop, rubs, systolic murmur - GI/Abdominal GI/Abdominal exam: Present: normal bowel sounds, soft, no peritoneal signs. Absent: distended, hepatomegaly, tenderness - Extremities Exam Extremities exam: Present: normal capillary refill, normal inspection, warm, radial pulses palpable and symmetrical. Absent: calf tenderness, cyanotic, pedal edema - Neurological Exam Neurological exam: Present: alert, oriented X3, no focal deficits. Absent: facial droop, speech deficit - Skin Skin exam: Present: dry, intact, normal color, warm. Absent: rash - VTE Documentation of Mechanical Device: Intermittent pneumatic compression device
== END 2017-06-06 15:50 | disposition home or self-care (01) ==
LOC: 3BNU 10:57 → EMEROO 10:57 → 3BNU 14:13
PROVIDERS: ADMIT Internal Medicine Hematology & Oncology; ATTEND Registered Nurse

== ENCOUNTER 2017-08-10 12:36 | Inpatient (IN) ==
[2017-08-10] MEDS ORDERED: cefOXitin 2,000 MG in Water for inj. (sterile) 10 ML IVP ONE (13:07)
[2017-08-10] MEDS ORDERED: Plasma-Lyte A (PH 7.4) 1,000 ML IVC SCH (13:15)
[2017-08-10 13:28] LABS: INR 1.1; Prothrombin Time 11.6 Seconds (9.4-12.1)
--- NOTE | 2017-08-10 13:42 | Anesthesia Evaluation PreOp ---
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 Other Medical History: Denies Any Significant HX Anesthesia History: No Prior Anesthetic Complications, Past Anesthesia Alcohol Use: none Drug use: none Medications and Allergies Gemfibrozil [Lopid] 600 mg PO BID 06/04/17 [History] Pantoprazole Sodium [Protonix] 40 mg PO DAILY 06/04/17 [History] Warfarin [Coumadin] 5 mg PO DAILY 06/04/17 [History] Calcium Carb, Citrate/Vit D3 [Calcium + D3 ER Tablet] 1 tab PO DAILY 08/10/17 [ History] Psyllium Husk [Psyllium Fiber] 0.52 gm PO DAILY 08/10/17 [History] 3 Allergy/AdvReac Type Severity Reaction Status Date / Time cephalexin [From Keflex] Allergy Rash Verified 08/10/17 13:10 - Meds/Allergy Pre-op Review Medications Reviewed: Yes Allergies Reviewed: Yes Beta Blockers on Current Med List: No Anesthesia Results - Imaging EKG: image reviewed (sinus rhythm, occ. pvc's) Anesthesia Exam Selected Entries 08/10/17 13:16 Temperature 97.8 F Pulse Rate 79 Respiratory Rate 18 Blood Pressure 154/88 O2 Sat by Pulse Oximetry 95 Weight: 92 kg. NPO (# of Hours): over 8 hours - HEENT Pupil (Motor): Pupils equal Mallampati: II Teeth: Normal Oral Opening: Greater than 3 - Cardiac Rhythm: Regular Murmur: None - Pulmonary Breath Sounds: bilateral Clear Respiratory Effort: Symmetrical Anesthesia Assess/Plan ASA Score: 2 Modified [place] Scale for Level of Consciousness: Cooperative, oriented, and tranquil Anesthetic Plan: General Monitoring Plan: Standard Monitors Recovery Plan: PACU (Discussed GA, risks. Agreed to proceed.)
[2017-08-10] MEDS ORDERED: Dexamethasone 4 MG/ML VIAL ONE (13:49)
[2017-08-10] MEDS ORDERED: Neostigmine Methylsulfate 3 MG/3 ML SYRINGE ONE ×2 (13:49→18:12)
[2017-08-10] MEDS ORDERED: *HR* Succinylcholine 200 MG/10 ML VIAL IVP ONE (13:49)
[2017-08-10] MEDS ORDERED: *HR* Rocuronium Bromide 50 MG/5 ML VIAL ONE ×2 (13:49→16:22)
[2017-08-10] MEDS ORDERED: Lidocaine -MPF 2% 2 ML VIAL ONE (13:49)
[2017-08-10] MEDS ORDERED: Ondansetron 4 MG/2 ML VIAL ONE (13:49)
[2017-08-10] MEDS ORDERED: *HR* FentaNYL (PF) 100 MCG/2 ML VIAL ONE ×2 (13:49→14:59)
[2017-08-10] MEDS ORDERED: *HR* Midazolam HCl 2 MG/2 ML VIAL ONE (13:50)
[2017-08-10] MEDS ORDERED: *HR* Propofol 200 MG/20 ML VIAL IVP ONE (13:50)
[2017-08-10] MEDS ORDERED: MetroNIDAZOLE 500 MG/100 ML 500 MG/100 ML BAG IVPB ONE (14:05)
[2017-08-10] MEDS ORDERED: Lidocaine -MPF 4% 5 ML AMPUL ONE (14:23)
--- NOTE | 2017-08-10 14:32 | History & Physical Report ---
Date of Encounter: 08/10/17 Time of Encounter: 14:32 24 Hour HP Update - Instructions Instructions: If the History and Physical is less than 30 days old and was completed prior to A.M. admission and or procedure and has NOT been updated on calendar day of procedure please complete this update prior to performing procedure. - Update Patient reports changes in Medical Condition: No Changes in examination, assessment, or condition: No Changes in Medication: No Preop tests/diagnostics Reviewed: Yes Surgery Remains Indicated: Yes Consent for Planned Operative Procedure(s) Verified: Yes - Pre-Operative Checklist Preoperative Checklist Indicated: Yes Prophylactic Antibiotic Ordered: Yes Home Medications Include Beta Tomasz: No
[2017-08-10] MEDS ORDERED: *HR* Enoxaparin 40 MG/0.4 ML SYRINGE SQ ONE (15:26)
[2017-08-10] MEDS ORDERED: Ondansetron 4 MG/2 ML VIAL IVP ONE (15:30)
[2017-08-10] MEDS ORDERED: Ringers Solution, Lactated 1,000 ML IVC SCH (15:30)
[2017-08-10] MEDS ORDERED: *HR* HYDROmorphone (PF) 1 MG/ML SYRINGE IVP PRN (15:30)
[2017-08-10] MEDS ORDERED: *HR* HYDROmorphone 2 MG/ML SYRINGE ONE (18:29)
[2017-08-10] MEDS ORDERED: Ketorolac 30 MG/ML VIAL ONE (18:29)
--- NOTE | 2017-08-10 19:11 | Anesthesia Evaluation Post Op ---
Date of Encounter: 08/10/17 Time of Encounter: 19:10 - Vital Signs Vital Signs: Vital Signs/O2 Sat, Most Current Temp Pulse Resp BP Pulse Ox 97.9 F 53 14 140/68 100 08/10/17 18:34 08/10/17 18:54 08/10/17 18:54 08/10/17 18:54 08/10/17 18:54 - Lungs Lungs: Clear Ascult./Percussion - Airway Airway: Non-obstructed - Cardiovascular Regular Rate - Mental Status Mental Status: Alert & Oriented, Answers Appropriately - Pain Pain Scale: 0 Pain Scale used: Numeric (1 - 10) - Nausea Vomiting Nausea Vomiting: Not Present - Hydration Hydration: NPO, Has not voided - Discharge PostOp Status: Transfer Patient to floor
[2017-08-10] MEDS ORDERED: Ondansetron 4 MG/2 ML VIAL IVP PRN (20:14)
[2017-08-10] MEDS ORDERED: *HR* HYDROmorphone 20 MG/20 ML PCA IVC PRN (20:14)
[2017-08-10] MEDS ORDERED: Naloxone 0.4 MG/ML INJ IVP PRN (20:14)
[2017-08-10] MEDS: Acetaminophen IV 1,000 MG/100 ML INFUS..BTL IVPB SCH (21:03)
[2017-08-10] MEDS: 0.9 % Sodium Chloride 1,000 ML IVC SCH (23:12)
--- NOTE | 2017-08-10 23:46 | Operative Note ---
Date of procedure: 08/10/17 Pre-op diagnosis: Descending colon cancer Post-op diagnosis: same Procedure: Robotic sigmoid resection with 29 mm EEA stapled anastomosis and takedown of splenic flexure Anesthesia: CRISTINA Surgeon: Liam Mishra Estimated blood loss (cc): 5 Specimen: Sigmoid colon Condition: stable Disposition: same day Procedure in Detail: After informed consent, patient taken operating room placed supine position. After adequate sedation anesthesia patient was placed in a lithotomy position. After proper timeout a 12 mm cannula site was placed right superior to the umbilicus. Pneumoperitoneum was greater. A 13 mm cannula was placed in right lower quadrant. 5 mm camera was placed in the right upper quadrant. An 8 mm cannula was placed in subxiphoid region followed by another 8 mm in the left lower quadrant. Patient was placed in a headdown position. The robot was docked over the patient's left hip. Small bowel swept out of the pelvis. Rectosigmoid colon was then grasped and retracted cephalad. The peritoneum was then scored level of the sacral promontory. The left ureter was identified and kept on harm's way. The inferior mesenteric artery was then taken with a vessel sealer. The lateral rectosigmoid stalks were taken down the vessel sealer. The dissection was carried out down to approximate 4 cm above the pelvic floor. Rectosigmoid colon was dissected free from the retro-pubic tubercle region. Once it was freed a 45 mm robotic Endo staplers fired across the rectum. Once it was retracted and area was demarcated on the sigmoid colon for transection. Indocyanine green was infused and we had excellent perfusion. The splenic flexure was also taken down and mobilized. This mobilization allowed for less tension on the anastomosis. A counterincision was made in the suprapubic region. Dissection carried down the anterior rectus sheath. The rectus muscles were then divided in the midline with Bonny clamp. Once they were split the rectosigmoid colon was delivered. Yesica bowel clamps are used to place across the colon proximal and distal and transected. Allis clamps are placed on the bowel and then a pursestring suture device placed on the colon. 3-0 Prolene suture was passed. A pursestring sutures and created and a 29 mm EEA anvil was placed. Suture was tied and secured. Colon was then placed back in the pelvis. The stapler was passed through the anal canal and to the rectal stump and then the spear was placed through the staple line. The anvil was then connected secured and fired. There were 2 excellent donuts. There were several 2-0 silk sutures used to buttress the staple line. A leak test revealed no leak. At that point the procedure was terminated. All incisions are closed with 0 Vicryl suture and 4-0 Vicryl suture. Marcaine was inserted in the Pfannenstiel incision. She tolerated the procedure well.
[2017-08-11] MEDS: Ketorolac 15 MG/ML VIAL IVP SCH ×5 (02:54→23:33)
[2017-08-11] MEDS: Acetaminophen IV 1,000 MG/100 ML INFUS..BTL IVPB SCH ×5 (03:26→21:26)
[2017-08-11 04:40] LABS: Basophils % 0.1 %; Hematocrit 36.5 % (35.3-44.9); Hemoglobin 11.6 g/dL (11.5-15.4); Immature Granulocytes % 0.8 % (0-4); Lymphocytes # 0.5 K/mcL (0.6-4.6); Mean Corpuscular HGB Conc 31.8 g/dL (31.6-35.5); Mean Corpuscular Volume 85.1 fL (83.0-100.0); Mean Platelet Volume 9.2 fL (9.4-12.4); Monocytes # 0.3 K/mcL (0.0-1.3); Monocytes % 3.4 %; Nucleated Red Blood Cells 0.2 /100 WBC (0); Platelet Count 264 K/mcL (140-400); Red Blood Count 4.29 M/mcL (3.82-4.97); Segmented Neutrophils % 90.7 %
[2017-08-11 04:53] LABS: BUN/Creatinine Ratio 11 (6-26); Blood Urea Nitrogen 8 mg/dL (7-20); Calcium 8.8 mg/dL (8.6-10.8); Carbon Dioxide 22 mEq/L (19-29); Chloride 108 mEq/L (98-109); Glucose 125 mg/dL (70-99); Osmolality,Calculated 286 (280-300); Potassium 4.5 mEq/L (3.5-4.5); Sodium 138 mEq/L (136-145); eGFR For African Americans > 60 (> 60); eGFR For Non-African Americans > 60 (> 60)
[2017-08-11 04:59] LABS: Neutrophils # 8.3 K/mcL (1.6-8.9)
[2017-08-11 05:01] LABS: Microcytosis Present (Not Present); Platelet Estimate Normal (Normal)
[2017-08-11] MEDS: *HR* Heparin 5,000 UNIT/ML VIAL SQ SCH (06:18)
[2017-08-11] MEDS: Pantoprazole 40 MG VIAL IVP SCH (08:22)
--- NOTE | 2017-08-11 10:54 | General Surgery Progress Note ---
<Hunter Nye - Last Filed: 08/11/17 14:40> Date of Encounter: 08/11/17 Time of Encounter: 10:15 - Assessment and Plan (1) Mass of colon Current Visit: Yes Status: Acute Post operative day #1 following descending colon resection for known colon cancer. Pt is tolerating pain without complaints of nausea, vomiting No reported flatus or BM as of yet. Plan: NPO with Ice chips and await for return of bowel function IS q1 hour while awake. discontinue brito Zofran, protonix, IVF (2) DVT prophylaxis Current Visit: Yes Status: Acute Heparin 5000 units q12 hr - Start lovenox today and return to heparin drip tomorrow for hx of DVT/PE Subjective Patient reports: no new complaints, feels better, pain is less, voiding w/o difficulty, no flatus, no bowel movement Narrative: Patient was seen and examined at bedside this morning. She is postoperative day #1 following descending colon resection for colon cancer. She states that her pain is well controlled at this time and is experiencing no nausea, vomiting. She denies any flatus or bowel movements. Objective Vital Signs - Last 8 Hours Temp Pulse Resp BP Pulse Ox 08/11/17 07:59 98.3 F 61 16 103/70 94 08/11/17 04:42 98.2 F 65 14 100/58 96 Intake and Output 08/10/17 08/11/17 08/11/17 23:59 07:59 15:59 Intake Total 200 / 200 100 / 100 0 / 0 Output Total 270 / 270 380 / 380 Balance -70 / -70 -280 / -280 0 / 0 Intake: IV Fluids 200 / 200 100 / 100 Ofirmev 1,000 mg/100 ml 1,000 100 / 100 100 / 100 mg In 100 ml @ 400 mls/hr IVPB Q6H [facility] Rx#:[id number] Flagyl Premix 500 MG/100 ML 500 100 / 100 mg In 100 ml @ 100 mls/hr IVPB ONCE ONE Rx#:[id number] Oral 0 / 0 0 / 0 Output: Estimated Blood Loss 50 / 50 Urine Amount (Catheter) 200 / 200 Catheter 350 / 350 Wound Drainage 20 / 20 30 / 30 Left Lower Abdomen 20 / 20 30 / 30 Other: Meal Breakfast NPO Weight 91.898 kg Blood Glucose* 111 Patient Weight 08/11/17 23:59 Weight 91.898 kg - General physical appearance well developed, well nourished, no distress - Respiratory normal expansion, normal respiratory effort, clear to auscultation - Cardiovascular Cardiovascular exam: Present: RRR, no murmurs/rubs/gallops - Abdomen Abdomen: Present: soft, tender. Absent: bowel sounds present Abdominal Tenderness: LLQ, suprapubic - Incision Incision: Present: clean and dry, intact, approximated - Labs 08/11/17 03:53 08/11/17 03:53 Diabetes panel 08/11/17 Range/Units 03:53 Sodium 138 (136-145) mEq/L Potassium 4.5 (3.5-4.5) mEq/L Chloride 108 (98-109) mEq/L Carbon Dioxide 22 (19-29) mEq/L BUN 8 (7-20) mg/dL Creatinine 0.71 (0.57-1.11) mg/dL Glucose 125 H (70-99) mg/dL Calcium 8.8 (8.6-10.8) mg/dL Calcium panel 08/11/17 Range/Units 03:53 Calcium 8.8 (8.6-10.8) mg/dL Pituitary panel 08/11/17 Range/Units 03:53 Sodium 138 (136-145) mEq/L Potassium 4.5 (3.5-4.5) mEq/L Chloride 108 (98-109) mEq/L Carbon Dioxide 22 (19-29) mEq/L BUN 8 (7-20) mg/dL Creatinine 0.71 (0.57-1.11) mg/dL Glucose 125 H (70-99) mg/dL Calcium 8.8 (8.6-10.8) mg/dL Adrenal panel 08/11/17 Range/Units 03:53 Sodium 138 (136-145) mEq/L Potassium 4.5 (3.5-4.5) mEq/L Chloride 108 (98-109) mEq/L Carbon Dioxide 22 (19-29) mEq/L BUN 8 (7-20) mg/dL Creatinine 0.71 (0.57-1.11) mg/dL Glucose 125 H (70-99) mg/dL Calcium 8.8 (8.6-10.8) mg/dL - VTE Documentation of Mechanical Device: Intermittent pneumatic compression device Consult Discharge Plan - Plan Referrals: China Mai, CANT GANG SAWYER [Primary Care Provider] - <Liam Mishra E - Last Filed: 08/11/17 14:51> Date of Encounter: 08/11/17 - Assessment and Plan (1) Mass of colon Current Visit: Yes Status: Acute Today's Miss Burgos is doing well. Her abdominal exam is benign. We discussed at length the symptoms that could occur with a potential leak including high heart rates pelvic pain and associated nausea. She is to report any of these symptoms to the nurse. If this would occur she may need a diagnostic laparoscopy with loop ileostomy and drainage. I doubt this will be necessary. However when she does resume bowel function will plan for clear liquids for an extended period of time. Objective Vital Signs - Last 8 Hours Temp Pulse Resp BP Pulse Ox 08/11/17 14:27 98.3 F 72 15 125/77 95 08/11/17 11:05 99.0 F 60 15 106/66 93 08/11/17 07:59 98.3 F 61 16 103/70 94 Intake and Output 08/10/17 08/11/17 08/11/17 23:59 07:59 15:59 Intake Total 200 / 200 100 / 100 1000 / 1000 Output Total 270 / 270 380 / 380 125 / 125 Balance -70 / -70 -280 / -280 875 / 875 Intake: IV Fluids 200 / 200 100 / 100 1000 / 1000 0.9 % Sodium Chloride 1,000 ML 1000 / 1000 @ 75 mls/hr IVC .[id number] [facility] Rx #:[id number] Ofirmev 1,000 mg/100 ml 1,000 100 / 100 100 / 100 mg In 100 ml @ 400 mls/hr IVPB Q6H [facility] Rx#:[id number] Flagyl Premix 500 MG/100 ML 500 100 / 100 mg In 100 ml @ 100 mls/hr IVPB ONCE ONE Rx#:[id number] Oral 0 / 0 0 / 0 Output: Estimated Blood Loss 50 / 50 Urine Amount (Catheter) 200 / 200 Catheter 350 / 350 100 / 100 Wound Drainage 20 / 20 30 / 30 25 / 25 Left Lower Abdomen 20 / 20 30 / 30 25 / 25 Other: Meal Breakfast NPO Weight 91.898 kg Blood Glucose* 111 90 Patient Weight 08/11/17 23:59 Weight 91.898 kg - Labs 08/11/17 03:53 08/11/17 03:53 Diabetes panel 08/11/17 Range/Units 03:53 Sodium 138 (136-145) mEq/L Potassium 4.5 (3.5-4.5) mEq/L Chloride 108 (98-109) mEq/L Carbon Dioxide 22 (19-29) mEq/L BUN 8 (7-20) mg/dL Creatinine 0.71 (0.57-1.11) mg/dL Glucose 125 H (70-99) mg/dL Calcium 8.8 (8.6-10.8) mg/dL Calcium panel 08/11/17 Range/Units 03:53 Calcium 8.8 (8.6-10.8) mg/dL Pituitary panel 08/11/17 Range/Units 03:53 Sodium 138 (136-145) mEq/L Potassium 4.5 (3.5-4.5) mEq/L Chloride 108 (98-109) mEq/L Carbon Dioxide 22 (19-29) mEq/L BUN 8 (7-20) mg/dL Creatinine 0.71 (0.57-1.11) mg/dL Glucose 125 H (70-99) mg/dL Calcium 8.8 (8.6-10.8) mg/dL Adrenal panel 08/11/17 Range/Units 03:53 Sodium 138 (136-145) mEq/L Potassium 4.5 (3.5-4.5) mEq/L Chloride 108 (98-109) mEq/L Carbon Dioxide 22 (19-29) mEq/L BUN 8 (7-20) mg/dL Creatinine 0.71 (0.57-1.11) mg/dL Glucose 125 H (70-99) mg/dL Calcium 8.8 (8.6-10.8) mg/dL
[2017-08-11] MEDS: 0.9 % Sodium Chloride 1,000 ML IVC SCH (11:24)
[2017-08-11] MEDS ORDERED: *HR* Enoxaparin 40 MG/0.4 ML SYRINGE SQ ONE (13:55)
[2017-08-12] MEDS: 0.9 % Sodium Chloride 1,000 ML IVC SCH ×2 (00:50→14:34)
[2017-08-12] MEDS: Acetaminophen IV 1,000 MG/100 ML INFUS..BTL IVPB SCH ×3 (03:20→16:32)
[2017-08-12 04:54] LABS: Basophils % 0.5 %; Eosinophils # 0.2 K/mcL (0.0-0.6); Eosinophils % 2.9 %; Hemoglobin 10.3 g/dL (11.5-15.4); Immature Granulocytes % 0.3 % (0-4); Lymphocytes # 1.6 K/mcL (0.6-4.6); Lymphocytes % 25.2 %; Mean Corpuscular HGB Conc 31.2 g/dL (31.6-35.5); Mean Corpuscular Hemoglobin 27.4 pg (28.0-33.3); Mean Corpuscular Volume 87.8 fL (83.0-100.0); Mean Platelet Volume 9.6 fL (9.4-12.4); Monocytes # 0.4 K/mcL (0.0-1.3); Monocytes % 6.3 %; Neutrophils # 4.1 K/mcL (1.6-8.9); Platelet Count 236 K/mcL (140-400); Red Blood Count 3.76 M/mcL (3.82-4.97); Segmented Neutrophils % 64.8 %
[2017-08-12 05:07] LABS: BUN/Creatinine Ratio 13 (6-26); Blood Urea Nitrogen 9 mg/dL (7-20); Calcium 8.9 mg/dL (8.6-10.8); Carbon Dioxide 23 mEq/L (19-29); Chloride 111 mEq/L (98-109); Glucose 76 mg/dL (70-99); Osmolality,Calculated 285 (280-300); Potassium 3.8 mEq/L (3.5-4.5); Sodium 139 mEq/L (136-145); eGFR For African Americans > 60 (> 60); eGFR For Non-African Americans > 60 (> 60)
[2017-08-12] MEDS: *HR* Heparin 5,000 UNIT/ML VIAL SQ SCH ×2 (05:15→05:16)
[2017-08-12 05:32] LABS: Anisocytosis 2+ (Not Present); Platelet Estimate Normal (Normal)
[2017-08-12] MEDS ORDERED: *HR* Heparin 5,000 UNIT/ML VIAL IVP ONE (09:44)
[2017-08-12] MEDS ORDERED: *HR* Heparin 5,000 UNIT/ML VIAL IVP PRN ×2 (09:44)
[2017-08-12 10:18] LABS: Hematocrit 38.6 % (35.3-44.9); Mean Corpuscular HGB Conc 31.3 g/dL (31.6-35.5); Mean Corpuscular Hemoglobin 27.3 pg (28.0-33.3); Mean Corpuscular Volume 86.9 fL (83.0-100.0); Mean Platelet Volume 8.9 fL (9.4-12.4); Platelet Count 266 K/mcL (140-400); Red Blood Count 4.44 M/mcL (3.82-4.97)
[2017-08-12] MEDS: Pantoprazole 40 MG VIAL IVP SCH (10:18)
[2017-08-12 10:19] LABS: Hemoglobin 12.1 g/dL (11.5-15.4)
--- NOTE | 2017-08-12 10:21 | General Surgery Progress Note ---
Date of Encounter: 08/12/17 Time of Encounter: 10:20 - Assessment and Plan (1) Mass of colon Current Visit: Yes Status: Acute Post operative day #2 following descending colon resection for known colon cancer. Pt is tolerating pain without complaints of nausea, vomiting No reported flatus or BM as of yet. Bowel sounds present but faint Plan: NPO with Ice chips and await for return of bowel function IS q1 hour while awake. Zofran, protonix, IVF (2) DVT prophylaxis Current Visit: Yes Status: Acute Low-dose heparin drip started this morning, discontinue Lovenox Subjective Patient reports: no new complaints, feels better, pain is less, flatus, no bowel movement, afebrile Narrative: Patient seen and examined at bedside this morning. She states she is doing well overall and improved from yesterday. Her pain is well controlled with medications. She states she is starting to have grumbling in her stomach but has not had a bowel movement yet. She is tolerating her ice chip diet without complaints and is not quite ready to begin clear liquids yet. Objective Vital Signs - Last 8 Hours Temp Pulse Resp BP Pulse Ox 08/12/17 03:37 98.0 F 66 13 120/72 90 Intake and Output 08/11/17 08/12/17 08/12/17 23:59 07:59 15:59 Intake Total 200 / 200 1100 / 1100 0 / 0 Output Total 285 / 285 400 / 400 Balance 180 / 180 815 / 815 -400 / -400 Intake: IV Fluids 200 / 200 1100 / 1100 0.9 % Sodium Chloride 1,000 ML 1000 / 1000 @ 75 mls/hr IVC .[id number] [facility] Rx #:[id number] Ofirmev 1,000 mg/100 ml 1,000 200 / 200 100 / 100 mg In 100 ml @ 400 mls/hr IVPB Q6H [facility] Rx#:[id number] Oral 0 / 0 Output: Urine 225 / 225 350 / 350 Wound Drainage 20 / 20 60 / 60 50 / 50 Left Lower Abdomen 20 / 20 60 / 60 50 / 50 Other: Meal Breakfast NPO Weight 91.89 kg Blood Glucose* 89 84 Patient Weight 08/12/17 23:59 Weight 91.89 kg - General physical appearance well developed, well nourished, no distress - Respiratory normal expansion, normal respiratory effort, clear to auscultation - Cardiovascular Cardiovascular exam: Present: RRR, no murmurs/rubs/gallops - Abdomen Abdomen: Present: bowel sounds present, soft, tender Abdominal Tenderness: LLQ - Incision Incision: Present: clean and dry, intact - Labs 08/12/17 10:09 08/12/17 03:17 Diabetes panel 08/12/17 Range/Units 03:17 Sodium 139 (136-145) mEq/L Potassium 3.8 (3.5-4.5) mEq/L Chloride 111 H (98-109) mEq/L Carbon Dioxide 23 (19-29) mEq/L BUN 9 (7-20) mg/dL Creatinine 0.72 (0.57-1.11) mg/dL Glucose 76 (70-99) mg/dL Calcium 8.9 (8.6-10.8) mg/dL Calcium panel 08/12/17 Range/Units 03:17 Calcium 8.9 (8.6-10.8) mg/dL Pituitary panel 08/12/17 Range/Units 03:17 Sodium 139 (136-145) mEq/L Potassium 3.8 (3.5-4.5) mEq/L Chloride 111 H (98-109) mEq/L Carbon Dioxide 23 (19-29) mEq/L BUN 9 (7-20) mg/dL Creatinine 0.72 (0.57-1.11) mg/dL Glucose 76 (70-99) mg/dL Calcium 8.9 (8.6-10.8) mg/dL Adrenal panel 08/12/17 Range/Units 03:17 Sodium 139 (136-145) mEq/L Potassium 3.8 (3.5-4.5) mEq/L Chloride 111 H (98-109) mEq/L Carbon Dioxide 23 (19-29) mEq/L BUN 9 (7-20) mg/dL Creatinine 0.72 (0.57-1.11) mg/dL Glucose 76 (70-99) mg/dL Calcium 8.9 (8.6-10.8) mg/dL - VTE Documentation of Mechanical Device: Intermittent pneumatic compression device Consult Discharge Plan - Plan Referrals: China Mai, FINE JEWELRY SALES ASSOCIATE [Primary Care Provider] -
[2017-08-12 10:25] LABS: INR 1.1; Prothrombin Time 12.3 Seconds (9.4-12.1)
[2017-08-12 10:28] LABS: Activated Partial Thrombo Time 30.7 Seconds (26.0-36.0)
[2017-08-12] MEDS: Heparin 25,000 UNIT/500 ML D5W 25,000 UNIT/500 ML BAG IVC SCH (11:32)
[2017-08-13 01:21] LABS: BUN/Creatinine Ratio 10 (6-26); Blood Urea Nitrogen 6 mg/dL (7-20); Calcium 8.8 mg/dL (8.6-10.8); Carbon Dioxide 17 mEq/L (19-29); Chloride 109 mEq/L (98-109); Glucose 73 mg/dL (70-99); Osmolality,Calculated 278 (280-300); Potassium 3.9 mEq/L (3.5-4.5); Sodium 136 mEq/L (136-145); eGFR For African Americans > 60 (> 60); eGFR For Non-African Americans > 60 (> 60)
[2017-08-13 01:46] LABS: Basophils % 0.4 %; Eosinophils # 0.2 K/mcL (0.0-0.6); Eosinophils % 1.8 %; Hematocrit 33.7 % (35.3-44.9); Hemoglobin 10.9 g/dL (11.5-15.4); Immature Granulocytes % 0.3 % (0-4); Immature Platelets 2.6 % (1.1-6.1); Lymphocytes # 1.2 K/mcL (0.6-4.6); Lymphocytes % 12.9 %; Mean Corpuscular HGB Conc 32.3 g/dL (31.6-35.5); Mean Corpuscular Hemoglobin 27.8 pg (28.0-33.3); Monocytes # 0.5 K/mcL (0.0-1.3); Monocytes % 6.1 %; Platelet Count 251 K/mcL (140-400); Red Blood Count 3.92 M/mcL (3.82-4.97); Segmented Neutrophils % 78.5 %
[2017-08-13 02:05] LABS: Anisocytosis 2+ (Not Present); Platelet Estimate Normal (Normal); Poikilocytosis 1+ (Not Present)
[2017-08-13] MEDS: 0.9 % Sodium Chloride 1,000 ML IVC SCH (08:33)
[2017-08-13] MEDS: Pantoprazole 40 MG VIAL IVP SCH (08:33)
--- NOTE | 2017-08-13 10:45 | General Surgery Progress Note ---
Date of Encounter: 08/13/17 Time of Encounter: 10:30 - Assessment and Plan (1) Mass of colon Current Visit: Yes Status: Acute Post-op day #3 for descending colon resection of known colon cancer Post-op pain well controlled with dilaudid PRODUCTION COUNTER No complaints of nausea/vomiting No reported BM, passing flatus Bowel sounds present Plan: Consider advancing diet to clear liquids, currently NPO but tolerating ice chips well Encourage continued IS use Zofran PRN Daily Protonix IVF--NS @ 75mL/hr (2) DVT prophylaxis Current Visit: Yes Status: Acute SCDs Continue heparin gtt, aPTT 77.8 today (3) Elevated temperature Current Visit: Yes Status: Acute Temperature elevation overnight, Tmax 99.8 --current temp 99.2 Post-op day #3 descending colon resection 2/2 known colon CA Segmented neutros increased slightly--78.5 today (64.8 yesterday) h/o DVT Plan: Toradol 15 mg IVP Q6H x3 doses 2 view CXR UA with reflex culture Bilateral LE doppler Subjective Patient reports: no new complaints, feels better, still having pain (present, but decreased), flatus, no bowel movement, afebrile Narrative: Seen and examined this morning. Patient is sitting up in bed, appears comfortable, and her is at beside. She denies fever, chills, nausea, vomiting. She hasn't had a bowel movement yet, but is passing flatus. Admits to some abdominal pain, but improved since yesterday, and well controlled with current pain meds. She is tolerating ice chips, sips of water--she states she doesn't have an appetite, but is willing to try clear liquids. No complaints at this time, but notes her (VICKI) drain has been leaking and nursing has had to change dressings several times. Objective Vital Signs - Last 8 Hours Temp Pulse Resp BP Pulse Ox 08/13/17 09:17 92 08/13/17 07:03 98.7 F 80 16 150/76 92 08/13/17 03:46 99.8 F H 84 16 132/72 95 Intake and Output 08/12/17 08/13/17 08/13/17 23:59 07:59 15:59 Intake Total 120 / 120 1120 / 1120 Output Total 820 / 820 420 / 420 Balance -700 / -700 700 / 700 Intake: IV Fluids 120 / 120 1120 / 1120 0.9 % Sodium Chloride 1,000 ML 1000 / 1000 @ 75 mls/hr IVC .[id number] [facility] Rx #:[id number] Heparin 25,000 UNIT/500 ML D5W 120 / 120 120 / 120 25,000 unit In 500 ml @ 10.8 UNIT/KG/HR 19.848 mls/hr IVC . Q24H [facility] Rx#:[id number] Output: Urine 800 / 800 400 / 400 Wound Drainage 20 20 20 / 20 Left Lower Abdomen 20 20 / 20 Other: Meal NPO # Voids 1 # Bowel Movements 0 Weight 92.1 kg Blood Glucose* 73 79 Patient Weight 08/13/17 23:59 Weight 92.1 kg - General physical appearance well developed, well nourished, no distress - Eyes normal ocular movement - ENT normal mucosa, no congestion, atraumatic, normocephalic - Neck Neck exam: no masses - Respiratory normal expansion, normal respiratory effort, clear to auscultation - Cardiovascular Cardiovascular exam: Present: RRR, no murmurs/rubs/gallops - Abdomen Abdomen: Present: bowel sounds present, soft, tender. Absent: distended, guarding, rebound, rigid Abdominal Tenderness: LUQ, LLQ Additional Comments: Incision sites for trochars noted, appear to be approximated with khushboo, covered by band-aids. VICKI drain on Lt side noted to have small amount clear, pink liquid present--surrounding dressing is clean and dry). - Neurologic CN 2-12 grossly intact, normal sensation - Psychiatric oriented to time, oriented to person, oriented to place, speech is normal, memory intact - Labs 08/13/17 00:49 08/13/17 00:49 Diabetes panel 08/13/17 Range/Units 00:49 Sodium 136 (136-145) mEq/L Potassium 3.9 (3.5-4.5) mEq/L Chloride 109 (98-109) mEq/L Carbon Dioxide 17 L (19-29) mEq/L BUN 6 L (7-20) mg/dL Creatinine 0.62 (0.57-1.11) mg/dL Glucose 73 (70-99) mg/dL Calcium 8.8 (8.6-10.8) mg/dL Calcium panel 08/13/17 Range/Units 00:49 Calcium 8.8 (8.6-10.8) mg/dL Pituitary panel 08/13/17 Range/Units 00:49 Sodium 136 (136-145) mEq/L Potassium 3.9 (3.5-4.5) mEq/L Chloride 109 (98-109) mEq/L Carbon Dioxide 17 L (19-29) mEq/L BUN 6 L (7-20) mg/dL Creatinine 0.62 (0.57-1.11) mg/dL Glucose 73 (70-99) mg/dL Calcium 8.8 (8.6-10.8) mg/dL Adrenal panel 08/13/17 Range/Units 00:49 Sodium 136 (136-145) mEq/L Potassium 3.9 (3.5-4.5) mEq/L Chloride 109 (98-109) mEq/L Carbon Dioxide 17 L (19-29) mEq/L BUN 6 L (7-20) mg/dL Creatinine 0.62 (0.57-1.11) mg/dL Glucose 73 (70-99) mg/dL Calcium 8.8 (8.6-10.8) mg/dL - VTE Documentation of Mechanical Device: Intermittent pneumatic compression device Consult Discharge Plan - Plan Referrals: China Mai, ALTERATIONS EXPERT [Primary Care Provider] -
[2017-08-13 11:53] LABS: Bilirubin,Urine Negative (Negative); Blood,Urine Negative (Negative); Clarity,Urine Clear (Clear); Color,Urine Yellow (Yellow); Glucose,Urine (UA) Normal (Normal); Ketones,Urine 80 mg/dL (Negative); Leukocyte Esterase,Urine Negative (Negative); Nitrite,Urine Negative (Negative); PH,Urine 6.5 pH Units (5.0-8.0); Protein,Urine Negative (Neg-Trace); Specific Gravity,Urine 1.015 (1.010-1.025); Urobilinogen,Urine Normal (Normal)
[2017-08-13] MEDS: Ketorolac 15 MG/ML VIAL IVP SCH (13:43)
[2017-08-13] MEDS: Heparin 25,000 UNIT/500 ML D5W 25,000 UNIT/500 ML BAG IVC SCH ×2 (14:07→15:23)
[2017-08-14] MEDS: Ketorolac 15 MG/ML VIAL IVP SCH ×2 (00:26→00:29)
[2017-08-14] MEDS: 0.9 % Sodium Chloride 1,000 ML IVC SCH (00:31)
[2017-08-14 01:21] LABS: Basophils % 0.4 %; Eosinophils # 0.2 K/mcL (0.0-0.6); Eosinophils % 3.3 %; Hematocrit 32.1 % (35.3-44.9); Hemoglobin 10.7 g/dL (11.5-15.4); Immature Granulocytes % 0.4 % (0-4); Lymphocytes # 1.2 K/mcL (0.6-4.6); Lymphocytes % 17.4 %; Mean Corpuscular HGB Conc 33.3 g/dL (31.6-35.5); Mean Platelet Volume 9.1 fL (9.4-12.4); Monocytes # 0.5 K/mcL (0.0-1.3); Monocytes % 7.4 %; Platelet Count 239 K/mcL (140-400); Red Blood Count 3.82 M/mcL (3.82-4.97); Segmented Neutrophils % 71.1 %
[2017-08-14 01:33] LABS: BUN/Creatinine Ratio 10 (6-26); Blood Urea Nitrogen 6 mg/dL (7-20); Calcium 9.2 mg/dL (8.6-10.8); Carbon Dioxide 16 mEq/L (19-29); Chloride 107 mEq/L (98-109); Glucose 80 mg/dL (70-99); Magnesium 1.5 mg/dL (1.6-2.6); Osmolality,Calculated 275 (280-300); Phosphorous 2.4 mg/dL (2.3-4.7); Potassium 3.4 mEq/L (3.5-4.5); Sodium 134 mEq/L (136-145); eGFR For African Americans > 60 (> 60); eGFR For Non-African Americans > 60 (> 60)
[2017-08-14] MEDS: Pantoprazole 40 MG VIAL IVP SCH (08:55)
[2017-08-14] MEDS ORDERED: Potassium Chloride Elixir 20 MEQ/15 ML UDC PO ONE (09:46)
--- NOTE | 2017-08-14 09:53 | General Surgery Progress Note ---
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 Bowel sounds present Bowel movements started yesterday, clots present Plan: Advance diet to clear liquids Encourage continued IS use Zofran PRN Daily Protonix IVF--NS @ 50 mL/hr (2) Elevated temperature Current Visit: Yes Status: Acute Tmax 99.8 --current temp 99.1 Post-op day #4 descending colon resection d/t known colon CA Segmented neutros decreasing--71.1 today (78.5 yesterday) h/o DVT, bilateral LE doppler 08/13/17--negative for DVT and SVT CXR 2 View 08/14/17--retrocardiac consolidation read by radiology UA with reflex culture--negative for UTI Plan: Continue to trend temperature Encourage regular IS use (3) DVT prophylaxis Current Visit: Yes Status: Acute SCDs Continue heparin gtt, aPTT 52.4 today (4) Electrolyte depletion Current Visit: Yes Status: Acute Potassium 3.4 and Magnesium 1.5 today Plan: Potassium 20 mEq PO Elixer Magnesium 2 gm in 50mL IVPB Continue to monitor electrolyte on AM labs Subjective Patient reports: no new complaints, pain is less (gas-like pain LLQ & RLQ), tolerating liquids well (sips water), flatus, bowel movement (with clots) Narrative: Seen and examined this morning at bedside. She is sitting up in bed and her is present in room. She has no complaints at time of my exam. Patient and are curious to know the results of the surgical tissue sample. No nausea, vomiting, fever, or chills. Objective Vital Signs - Last 8 Hours Temp Pulse Resp BP Pulse Ox 08/14/17 06:49 99.1 F 74 16 130/76 94 08/14/17 03:36 98.2 F 78 16 132/66 94 Intake and Output 08/13/17 08/14/17 08/14/17 23:59 07:59 15:59 Intake Total 1000 / 1000 0 / 0 Output Total 60 / 60 Balance 940 / 940 0 / 0 Intake: IV Fluids 1000 / 1000 0.9 % Sodium Chloride 1,000 ML 1000 / 1000 @ 75 mls/hr IVC .[id number] [facility] Rx #:[id number] Oral 0 / 0 0 / 0 Output: Wound Drainage 60 / 60 Left Lower Abdomen 60 / 60 Other: Meal NPO NPO Breakfast Percent of Meal Consumed 0% # Voids 1 1 Weight 92.1 kg Blood Glucose* 79 83 Patient Weight 08/14/17 23:59 Weight 92.1 kg - General physical appearance well developed, well nourished, no distress - Eyes normal ocular movement - ENT atraumatic, normocephalic - Neck Neck exam: no masses - Respiratory normal expansion, normal respiratory effort, clear to percussion, clear to auscultation - Cardiovascular Cardiovascular exam: Present: RRR, no murmurs/rubs/gallops - Abdomen Abdomen: Present: bowel sounds present, soft, tender (appropriate) Abdominal Tenderness: LLQ Additional Comments: Incision sites for trochars noted, approximated with khushboo, covered by band- aids. VICKI drain on Lt side with small amount clear, pink liquid present-- surrounding dressing is clean and dry. - Neurologic CN 2-12 grossly intact, normal coordination - Psychiatric oriented to time, oriented to person, oriented to place, speech is normal, memory intact - Labs 08/14/17 01:09 08/14/17 01:09 Diabetes panel 08/14/17 Range/Units 01:09 Sodium 134 L (136-145) mEq/L Potassium 3.4 L (3.5-4.5) mEq/L Chloride 107 (98-109) mEq/L Carbon Dioxide 16 L (19-29) mEq/L BUN 6 L (7-20) mg/dL Creatinine 0.61 (0.57-1.11) mg/dL Glucose 80 (70-99) mg/dL Calcium 9.2 (8.6-10.8) mg/dL Calcium panel 08/14/17 Range/Units 01:09 Calcium 9.2 (8.6-10.8) mg/dL Phosphorus 2.4 (2.3-4.7) mg/dL Pituitary panel 08/14/17 Range/Units 01:09 Sodium 134 L (136-145) mEq/L Potassium 3.4 L (3.5-4.5) mEq/L Chloride 107 (98-109) mEq/L Carbon Dioxide 16 L (19-29) mEq/L BUN 6 L (7-20) mg/dL Creatinine 0.61 (0.57-1.11) mg/dL Glucose 80 (70-99) mg/dL Calcium 9.2 (8.6-10.8) mg/dL Adrenal panel 08/14/17 Range/Units 01:09 Sodium 134 L (136-145) mEq/L Potassium 3.4 L (3.5-4.5) mEq/L Chloride 107 (98-109) mEq/L Carbon Dioxide 16 L (19-29) mEq/L BUN 6 L (7-20) mg/dL Creatinine 0.61 (0.57-1.11) mg/dL Glucose 80 (70-99) mg/dL Calcium 9.2 (8.6-10.8) mg/dL - VTE Documentation of Mechanical Device: Intermittent pneumatic compression device Consult Discharge Plan - Plan Referrals: China Mai, OCEAN LIFEGUARD SPECIALIST [Primary Care Provider] -
[2017-08-14] MEDS ORDERED: 0.9 % Sodium Chloride 1,000 ML IVC SCH (10:30)
[2017-08-14] MEDS ORDERED: traMADol 50 MG TABLET PO PRN (13:17)
[2017-08-14] MEDS ORDERED: *HR* HYDROmorphone (PF) 1 MG/ML SYRINGE IVP PRN (13:18)
[2017-08-14] MEDS ORDERED: *HR* Warfarin 5 MG TABLET PO SCH ×2 (13:30→18:00)
[2017-08-14] MEDS: *HR* Enoxaparin 100 MG/ML SYRINGE SQ SCH (17:12)
[2017-08-15 04:36] LABS: Basophils % 0.4 %; Eosinophils # 0.3 K/mcL (0.0-0.6); Hematocrit 32.6 % (35.3-44.9); Hemoglobin 10.9 g/dL (11.5-15.4); Immature Granulocytes % 0.4 % (0-4); Lymphocytes # 1.1 K/mcL (0.6-4.6); Lymphocytes % 21.2 %; Mean Corpuscular HGB Conc 33.4 g/dL (31.6-35.5); Mean Corpuscular Hemoglobin 27.8 pg (28.0-33.3); Mean Corpuscular Volume 83.2 fL (83.0-100.0); Mean Platelet Volume 9.5 fL (9.4-12.4); Monocytes # 0.5 K/mcL (0.0-1.3); Monocytes % 9.7 %; Neutrophils # 3.3 K/mcL (1.6-8.9); Platelet Count 292 K/mcL (140-400); Red Blood Count 3.92 M/mcL (3.82-4.97); Red Cell Distribution Width 23.1 % (11.5-14.5); Segmented Neutrophils % 63.3 %
[2017-08-15 05:09] LABS: BUN/Creatinine Ratio 6 (6-26); Blood Urea Nitrogen 3 mg/dL (8-23); Calcium 8.9 mg/dL (8.6-10.3); Carbon Dioxide 21 mEq/L (23-29); Chloride 109 mEq/L (98-107); Glucose 103 mg/dL (70-105); Osmolality,Calculated 283 (280-300); Potassium 3.2 mEq/L (3.5-5.1); Sodium 138 mEq/L (136-145); eGFR For African Americans > 60 (> 60); eGFR For Non-African Americans > 60 (> 60)
[2017-08-15] MEDS: *HR* Enoxaparin 100 MG/ML SYRINGE SQ SCH (05:10)
[2017-08-15 06:00] LABS: Anisocytosis 1+ (Not Present); Microcytosis Present (Not Present)
[2017-08-15 06:01] LABS: Platelet Estimate Normal (Normal); Poikilocytosis 1+ (Not Present)
[2017-08-15] MEDS: Pantoprazole 40 MG VIAL IVP SCH (08:08)
[2017-08-15] MEDS ORDERED: Potassium Chloride Elixir 20 MEQ/15 ML UDC PO ONE (09:00)
[2017-08-15 10:39] LABS: INR 1.3; Prothrombin Time 14.4 Seconds (9.4-12.1)
[2017-08-15 11:16] VITALS: BP 131/79
--- NOTE | 2017-08-15 11:34 | Discharge Summary ---
Date of Encounter: 08/15/17 Time of Encounter: 11:00 - Discharge Diagnosis (1) Mass of colon Priority: Primary Status: Acute (2) Anticoagulated on Coumadin Priority: Secondary Status: Chronic - Discharge Medications Prescriptions: Enoxaparin [Lovenox] 90 mg SQ Q12HR #14 syringe Tramadol HCl [Ultram] 50 mg PO QID PRN #20 tab PRN Reason: Pain Home Medications: Gemfibrozil [Lopid] 600 mg PO BID 06/04/17 [History] Pantoprazole Sodium [Protonix] 40 mg PO DAILY 06/04/17 [History] Calcium Carb, Citrate/Vit D3 [Calcium + D3 ER Tablet] 1 tab PO DAILY 08/10/17 [ History] Enoxaparin [Lovenox] 90 mg SQ Q12HR #14 syringe 08/15/17 [Rx] Tramadol HCl [Ultram] 50 mg PO QID PRN #20 tab 08/15/17 [Rx] Warfarin [Coumadin] 5 mg PO SUTUWESA tablet 08/15/17 [Rx] Warfarin [Coumadin] 7.5 mg PO MOTHFR tablet 08/15/17 [Rx] Allergies/Adverse Reactions: 3 Allergy/AdvReac Type Severity Reaction Status Date / Time cephalexin [From Keflex] Allergy Rash Verified 08/10/17 13:10 General Surgery Exam Initial Vital Signs Temp Pulse Resp BP Pulse Ox 97.8 F 79 18 154/88 95 08/10/17 13:16 08/10/17 13:16 08/10/17 13:16 08/10/17 13:16 08/10/17 13:16 - General physical appearance well developed, well nourished, no distress, no pain - Eyes normal ocular movement - ENT normal mucosa, atraumatic, normocephalic - Neck trachea midline - Respiratory normal expansion, normal respiratory effort, clear to auscultation - Cardiovascular Cardiovascular exam: Present: RRR - Abdomen Abdomen general surgery: Present: bowel sounds present, soft, tender (Minimal, expected postoperative tenderness), wound (VICKI drain to bulb suction with serous sanguinous drainage noted. Drain removed per myself.) - Incision Incision: Present: clean and dry, intact - Integumentary Integumentary general surgery: Present: warm and dry - Neurologic Present: CN 2-12 grossly intact - Musculoskeletal Present: normal gait, normal posture - Psychiatric Psychiatric general surgery: Present: appropriate, oriented to person, oriented to place, oriented to time, speech is normal, memory intact Date of admission: 08/10/17 20:14 Primary care physician: China Mai CNP Consults: 08/13/17 15:10 Consult to Respiratory Therapy [CONS] Routine Reason for Consult: Needs aggressive pulmonary toileting Call Completed: Yes Discharging clinician: Liam Mishra ([facility]) Anticipated date of discharge: 08/15/17 - Patient Status Disposition: Home, Self-Care Condition: Good Functional capacity at discharge: independent ambulation Overall status at discharge: patient is progressing back to baseline - Discharge Instructions Follow Up With: China Mai CNP [Primary Care Provider] - (2 weeks hospital follow-up) Catia Petersen MD [Partnered Physician] - (New patient- s/p sigmoid resection for colon cancer; follow-up 2-3 weeks) Emma Nguyen CNP [Advanced Practice Nurse] - 08/24/17 8:20 am (Surgery follow -up) Carson Barnes [Registered Pharmacist] - (Follow-up in the coumadin clinic in the next 24-48 hours for management of lovenox bridge back onto coumadin) Additional Instructions: #1 may shower, no tub bath for 2 weeks #2 wash incisions with soap and water and pat dry daily #3 no lifting, pushing, pulling more than 15 pounds for the next 4 weeks #4 no driving until off narcotics for 24 hours and able to safely react in the car #5 may climb stairs - Diet and Activity Activity: other (See additional instructions above) Diet: other (Full liquid diet for the next 3 weeks; Ensure or equivalent (3 cans per day)) - Hospital Course Hospital course: Ms. Burgos is a 72 year old female who has been seen and evaluated by Dr. Mishra for a colon mass. She is status post a Robotic sigmoid resection with 29 mm EEA stapled anastomosis and takedown of splenic flexure with Dr. Mishra. The patient was maintained on bowel rest while awaiting return of bowel function. She was given supportive care including IV fluids and pain control. With return of bowel function, the patient was started on a clear liquid diet. She tolerated this without difficulty. She is continuing to pass flatus and has had liquid stools. We will advance her to full liquids. We will plan for discharge to home if the patient able to tolerate her full liquid diet. She will be on a full liquid diet for at least 3 weeks. Her pathology was reviewed with her. We will plan for outpatient follow-up with oncology. The patient's vital signs are stable and she is afebrile. Her pain is well-controlled. She is voiding and ambulating without difficulty. Her VICKI drain was removed prior to discharge. She was maintained on therapeutic anticoagulation throughout her hospitalization due to a history of DVT and pulmonary embolism. She will be discharged to home with Lovenox bridge therapy to Coumadin. She will follow up with the Coumadin clinic in the next 24-48 hours for management of her Coumadin therapy. She will follow-up in the surgery office in the next 7-10 days. - Time Spent with Patient Total time spent providing and/or coordinating discharge services: Less than 30 minutes Labs on day of discharge: Labs from last 24 hours 08/15/17 08/15/17 08/15/17 10:00 10:00 03:47 WBC RBC Hgb Hct MCV MCH MCHC RDW Plt Count MPV Immature Gran % Seg Neutrophils % Lymphocytes % Monocytes % Eosinophils % Basophils % Neutrophils # Lymphocytes # Monocytes # Eosinophils # Basophils # Platelet Estimate Poikilocytosis Anisocytosis Microcytosis PT 14.4 H INR 1.3 APTT 31.5 Sodium Potassium Chloride Carbon Dioxide BUN Creatinine Est GFR ( Amer) Est GFR (Non-Af Amer) BUN/Creatinine Ratio Glucose Calculated Osmolality Calcium Magnesium 1.5 L 08/15/17 08/15/17 08/14/17 03:47 03:47 13:18 WBC 5.2 RBC 3.92 Hgb 10.9 L Hct 32.6 L MCV 83.2 MCH 27.8 L MCHC 33.4 RDW 23.1 H Plt Count 292 MPV 9.5 Immature Gran % 0.4 Seg Neutrophils % 63.3 Lymphocytes % 21.2 Monocytes % 9.7 Eosinophils % 5.0 Basophils % 0.4 Neutrophils # 3.3 Lymphocytes # 1.1 Monocytes # 0.5 Eosinophils # 0.3 Basophils # 0.0 Platelet Estimate Normal Poikilocytosis 1+ A Anisocytosis 1+ A Microcytosis Present A PT INR APTT 48.2 H Sodium 138 Potassium 3.2 L Chloride 109 H Carbon Dioxide 21 L BUN 3 L Creatinine 0.51 L Est GFR ( Amer) > 60 Est GFR (Non-Af Amer) > 60 BUN/Creatinine Ratio 6 Glucose 103 Calculated Osmolality 283 Calcium 8.9 Magnesium - Impressions ITS Impressions Chest X-Ray 08/13/17 11:21 IMPRESSION: Retrocardiac consolidation likely reflects pneumonia. Follow-up imaging is recommended to ensure resolution. D/ / 08/13/2017 12:11:30 Liyah Randolph MD / earno Interpreting Provider: Liyah Randolph MD Abdomen/Pelvis CT 08/13/17 12:21 IMPRESSION: Postsurgical changes are seen related to a partial colectomy with a sigmoid anastomosis noted in the left lower quadrant. The colon is distended with predominantly gas from the cecum through the anastomosis, which could be related to a postoperative ileus or possible partial obstruction. This may be related to mild swelling at the anastomosis given patient's recent surgery. Fluid and gas are noted beyond the anastomosis. No loculated fluid collection is identified in the abdomen or pelvis to suggest postoperative abscess collection. Mild stranding noted within the pelvis which is felt postoperative in nature, with mild presacral edema. Subcutaneous soft tissue stranding also seen related to postoperative status. There are a few scattered subcutaneous and intraperitoneal areas of gas felt postoperative in nature. A small amount of gas is noted within the bladder lumen which may be related to recent instrumentation. Trace bilateral pleural effusions with bibasilar atelectasis. Moderate hiatal hernia. Cholelithiasis without acute cholecystitis. D/ / 08/13/2017 14:30:37 Merlin Harding MD / em Interpreting Provider: Merlin Harding MD - Attending Attestation For this encounter, I have reviewed the CHILD PROTECTIVE INVESTIGATOR or PA documentation, treatment plan, and medical decision making; and I have had face to face time with this patient.
[2017-08-16] MEDS ORDERED: *HR* Warfarin 7.5 MG TABLET PO SCH (18:00)
== END 2017-08-15 15:50 | disposition home or self-care (01) | DRG 331 ==
LOC: SAMDAY 12:36 → 3ANU 20:11
PROVIDERS: ADMIT Surgery; ATTEND Surgery